=== PATIENT | male | born 1955 | race Caucasian/White ===

== ENCOUNTER 2020-02-18 07:32 | Outpatient (REF) | payer MEDICARE, MEDICAID, SELFPAY ==
[2020-02-18 10:47] LABS: Alanine Aminotransferase 64 U/L (0-40); Albumin Level 4.3 g/dL (3.5-5.0); Alkaline Phosphatase 70 U/L (39-117); Aspartate Amino Transferase 41 U/L (5-37); Bilirubin Direct 0.3 mg/dL (0.0-0.5); Bilirubin Total 0.6 mg/dL (0.0-1.0); Cholesterol 123 mg/dL; HDL Cholesterol 39 mg/dL; LDL Cholesterol Calculated 61 mg/dl; Total Protein 7.1 g/dL (6.5-8.0); Triglycerides 117 mg/dL
== END 2020-02-18 07:33 | disposition home or self-care (01) ==
LOC: HO.10HDL 07:32
DX: E78.5 Hyperlipidemia, unspecified (principal)
CPT/HCPCS: 80061; 80076

== ENCOUNTER 2020-03-22 11:04 | Emergency (ER) | payer MEDICARE, MEDICAID, SELFPAY ==
[2020-03-22 11:15] VITALS: BP 142/100; PULSE 118; RESP 18; TEMP 36.2; O2SAT 99; BMI 27.4
--- NOTE | 2020-03-22 11:56 | XR_ITS ---
EXAMINATION: XR LUMBOSACRAL SPINE CLINICAL INFORMATION: Low back pain COMPARISON: None TECHNIQUE: Three views of the lumbosacral spine. FINDINGS: There is mild 4 mm anterior subluxation of L5 with respect to S1. Bone alignment is otherwise normal. No fracture or dislocation is seen. Disc spaces are normal appearing. There is lower lumbar spine facet arthritis and probable L5 pars defect. There is evidence of atherosclerotic disease. XR/XR lumbar spine 2-3V IMPRESSION: Mild anterior subluxation of L5 with respect to S1, probable bilateral L5 pars defect, and lower lumbar spine facet arthritis.
--- NOTE | 2020-03-22 11:58 | ED.BACK ---
HPI - Back Pain/Injury General Chief Complaint: Back Pain/Injury Stated Complaint: back and left hip pain Time Seen by Provider: 03/22/20 13:32 Source: patient Mode of arrival: ambulatory Limitations: no limitations History of Present Illness HPI Narrative: Patient presents to the ED for lower back pain for 1 week. Patient states last week he got up from his bed and turned to towards his left fast and that caused his left lower back radiating down to the leg. Patient denies fall to ground or any blunt trauma to his back, abdomen, any other part of his body. Patient denies any urinary/bowel incontinence since incident occurred. Patient states no fever, chills, abdominal pain, dysuria, hematuria or flank pain. MD elicited complaint: back pain Related Data Previous Rx's Medication Instructions Recorded cyclobenzaprine 10 mg PO TID PRN #18 tab 03/22/20 Allergies Allergy/AdvReac Type Severity Reaction Status Date / Time No Known Allergies Allergy Verified 03/22/20 11:15 Review of Systems Review of Systems: Yes all other systems are reviewed and are negative Constitutional: Constitutional: Reports as per HPI and Reports no additional constitutional complaints Eyes: Eyes: Reports as per HPI and Reports no additional eye complaints ENT: Reports system reviewed and no additional complaints, except as documented and Reports as per HPI Cardiovascular: Cardiovascular: Reports as per HPI and Reports no additional cardiovascular complaints Respiratory: Respiratory: Reports as per HPI and Reports no additional respiratory complaints Gastrointestinal: Gastrointestinal: Reports as per HPI and Reports no additional gastrointestinal complaints Musculoskeletal: Musculoskeletal: Reports no additional musculoskeletal complaints, Reports as per HPI and Reports back pain Neurologic: Reports system reviewed and no additional complaints, except as documented and Reports as per HPI Psychiatric: Psychiatric: Reports no additional psychiatric complaints and Reports as per HPI [facility] Past Medical History Medical History High cholesterol Social History Social History Advance Directives: No Advance Directives Information Provided: Yes Physical Exam Vital Signs: Vital Signs: Last Vital Signs Temp 97.2 F 03/22/20 11:15 Pulse 100 03/22/20 13:48 Resp 18 03/22/20 13:48 BP 151/102 H 03/22/20 13:48 Pulse Ox 97 03/22/20 13:48 Body Mass Index 27.4 Const: General: cooperative, healthy appearing, comfortable, no acute distress, well developed, alert, awake and Physically active Orientation/consciousness: patient oriented x3 HENMT: Head: Yes normal to inspection and Yes No palpable skull fracture present Eyes: General: appearance normal, both eyes and all related structures Neck: Neck: Yes normal visual inspection, Yes full ROM, Yes no lymphadenopathy, Yes no meningeal signs, Yes trachea midline, Yes supple and No tender Chest: Chest palpation & inspection: normal inspection of the chest and normal palpation of entire chest wall Resp: Effort & Inspection: normal respiratory effort and able to speak in complete sentences Auscultation: clear to auscultation bilaterally Cardio: Jugular venous distension: no JVD Heart sounds: S1 normal heart sound present and S2 normal heart sound present : General: No CVA tenderness and Yes no CVA tenderness Back/Spine/Pelvis: Back: no CVA tenderness, No CVA tenderness and back tenderness (Lumbar spine) Skin: General skin exam: no rashes or lesions noted and elasticity normal Neuro: General: patient oriented x3, gait normal, no meningeal signs and CN's II-XI intact bilaterally Cranial nerves: Yes CN's II-XII intact bilaterally Extrem: General: Yes normal to inspection and Yes full ROM Psych: Appearance: grossly normal, well kempt and not disheveled Course Course Course Narrative: Patient will be given pain medication and have got x-ray done. Reevaluation(s) Reevaluation #1: X-ray negative for fracture. Shows arthritis and mild subluxation of lumbar spine. Patient walking around the ED. Negative for any neuro deficit. Dr. Pires reviewed xray results and states patient can be discharged with follow up Patient given copy of xray to follow up with his PCP. Patient already has tramadol prescription at home Time: 13:35 MDM - Back Pain/Injury MDM Narrative Medical decision making narrative: Lumbar spine arthritis Discharge Plan Discharge Clinical Impression: Lumbar radiculopathy Patient Disposition: Home, Self-Care Instructions: Lumbar Radiculopathy (ED) Additional Instructions: Return to the ED immediately for urinary/bowel incontinence, worsening pain, flank pain, fever, chills, bloody urine, pain on urination, abdominal pain, or any other concerning symptoms. Spine x-ray showed mild L5 anterior subluxation and arthritis. Prescriptions: New cyclobenzaprine 10 mg tablet 10 mg PO TID PRN (Reason: pain) Qty: 18 RF: 0 Interventions: ED Discharge Assessment Last Done: 03/22/20 13:59 Discharge Date/Time: 03/22/20 14:00 Print Language: Vietnamese
[2020-03-22] MEDS: Ketorolac Tromethamine 30 MG/ML VIAL IM (12:30)
[2020-03-22] MEDS: Cyclobenzaprine HCl 5 MG TABLET PO (12:30)
[2020-03-22 13:48] VITALS: BP 151/102; PULSE 100; RESP 18; O2SAT 97
== END 2020-03-22 14:00 | disposition home or self-care (01) ==
PROVIDERS: Emergency Provider Emergency Medicine
DX: M54.16 Radiculopathy, lumbar region (principal)
CPT/HCPCS: 72100; 96372; 99283; 99284; J1885

== ENCOUNTER 2020-07-07 08:01 | Outpatient (REF) | payer MEDICARE, MEDICAID, SELFPAY ==
[2020-07-07 09:31] LABS: Iron 40 mcg/dL (45-160); Percent Iron Saturation 12 % (15-50); Total Iron Binding Capacity 344 mcg/dL (228-428); Unsaturated Iron Binding 304 ug/dL
[2020-07-07 09:51] LABS: Basophils Percent Auto 0.3 % (0-2); Eosinophils Absolute Auto 0.4 X10*3/uL (0.0-0.4); Eosinophils Percent Auto 4.7 % (0-4); Hematocrit 39.7 % (42-52); Hemoglobin 12.8 g/dl (14.0-18.0); Imm Gran Abs Auto 0.04 X10*3/uL (0.00-0.03); Imm Gran Pct Auto 0.5 % (0.0-0.4); Immature Retic Fraction 9.2 % (2.3-13.4); Lymphocytes Absolute Auto 1.8 X10*3/uL (1.2-4.9); Lymphocytes Percent Auto 22.3 % (20-40); MANUAL DIFF FLAG SCAN; Mean Corpuscular HGB Conc 32.2 g/dl (31.0-36.0); Mean Corpuscular Hemoglobin 27.3 pg (27.0-33.0); Mean Corpuscular Volume 84.6 fL (80-98); Monocytes Absolute Auto 0.8 X10*3/uL (0.1-1.2); Monocytes Percent Auto 9.9 % (2-11); Neutrophils Percent Auto 62.3 % (45-73); PLT CLUMP 1; Red Blood Count 4.69 X10*6/uL (4.60-5.80); Red Cell Distribution Width 12.7 % (11.0-16.0); Retic HGB Equivalent 30.6 pg (30.0-35.0); Reticulocyte Percent 1.3 % (0.5-1.8); Reticulocytes Absolute 0.061 X10*6/uL (0.026-0.095); SCAN SMEAR FLAG 1
[2020-07-07 09:54] LABS: Ferritin 95 ng/mL (20-250); Prostate Specific Antigen Scr 0.27 ng/mL (<0.05-4.0)
[2020-07-07 10:04] LABS: Folate > 20.0 ng/mL (> or = 4.0); Vitamin B12 649 pg/mL (200-900)
[2020-07-07 10:06] LABS: White Blood Count 7.9 X10*3/uL (4.8-10.8)
[2020-07-07 10:07] LABS: SLIDE REVIEW VERIFIED
== END 2020-07-07 08:02 | disposition home or self-care (01) ==
LOC: HO.10HDL 08:01
PROVIDERS: PCP Internal Medicine; Visit Provider Internal Medicine
DX: D64.9 Anemia, unspecified (principal)
CPT/HCPCS: 36415; 82607; 82728; 82746; 83540; 84153; 85025; 85045

== ENCOUNTER 2020-11-15 07:42 | Outpatient (REF) | payer MEDICARE, MEDICAID, SELFPAY ==
[2020-11-15 10:25] LABS: Basophils Percent Auto 0.3 % (0-2); Eosinophils Absolute Auto 0.3 X10*3/uL (0.0-0.4); Hematocrit 42.7 % (42-52); Hemoglobin 14.4 g/dl (14.0-18.0); Imm Gran Abs Auto 0.02 X10*3/uL (0.00-0.03); Imm Gran Pct Auto 0.3 % (0.0-0.4); Immature Retic Fraction 9.2 % (2.3-13.4); Lymphocytes Absolute Auto 1.7 X10*3/uL (1.2-4.9); Lymphocytes Percent Auto 22.7 % (20-40); MANUAL DIFF FLAG SCAN; Mean Corpuscular HGB Conc 33.7 g/dl (31.0-36.0); Mean Corpuscular Hemoglobin 28.7 pg (27.0-33.0); Mean Corpuscular Volume 85.2 fL (80-98); Monocytes Absolute Auto 0.6 X10*3/uL (0.1-1.2); Monocytes Percent Auto 8.4 % (2-11); Neutrophils Absolute Auto 4.7 X10*3/uL (2.0-8.3); Neutrophils Percent Auto 64.3 % (45-73); PLT CLUMP 1; Red Blood Count 5.01 X10*6/uL (4.60-5.80); Red Cell Distribution Width 12.7 % (11.0-16.0); Reticulocyte Percent 1.7 % (0.5-1.8); Reticulocytes Absolute 0.087 X10*6/uL (0.026-0.095); SCAN SMEAR FLAG 1
[2020-11-15 10:29] LABS: Platelet Count (Citrate) 231 X10*3/uL (150-310)
[2020-11-15 10:42] LABS: Iron 128 mcg/dL (45-160); Percent Iron Saturation 46 % (15-50); Total Iron Binding Capacity 280 mcg/dL (228-428); Unsaturated Iron Binding 152 ug/dL
[2020-11-15 10:53] LABS: White Blood Count 7.3 X10*3/uL (4.8-10.8)
[2020-11-15 10:55] LABS: SLIDE REVIEW VERIFIED
[2020-11-15 11:44] LABS: Folate > 20.0 ng/mL (> or = 4.0); Vitamin B12 563 pg/mL (200-900)
[2020-11-15 12:47] LABS: Ferritin 57 ng/mL (20-250)
== END 2020-11-15 07:43 | disposition home or self-care (01) ==
LOC: HO.10HDL 07:42
PROVIDERS: Visit Provider Internal Medicine
DX: D64.9 Anemia, unspecified (principal)
CPT/HCPCS: 36415; 82607; 82728; 82746; 83540; 85025; 85045

== ENCOUNTER 2021-03-16 07:43 | Outpatient (REF) | payer MEDICARE, MEDICAID, SELFPAY ==
[2021-03-16 13:38] LABS: Basophils Percent Auto 0.3 % (0-2); Monocytes Percent Auto 9.7 % (2-11); PLT CLUMP 1; SCAN SMEAR FLAG 1
[2021-03-16 13:40] LABS: Eosinophils Absolute Auto 0.6 X10*3/uL (0.0-0.4); Eosinophils Percent Auto 6.5 % (0-4); Hematocrit 45.3 % (42.0-52.0); Imm Gran Abs Auto 0.03 X10*3/uL (0.00-0.03); Imm Gran Pct Auto 0.3 % (0.0-0.4); Lymphocytes Absolute Auto 2.4 X10*3/uL (1.2-4.9); Lymphocytes Percent Auto 25.8 % (20-40); MANUAL DIFF FLAG SCAN; Mean Corpuscular HGB Conc 33.1 g/dl (31.0-36.0); Mean Corpuscular Volume 87.6 fL (80.0-98.0); Monocytes Absolute Auto 0.9 X10*3/uL (0.1-1.2); Neutrophils Absolute Auto 5.2 x10*3/uL (2.0-8.3); Neutrophils Percent Auto 57.4 % (45-73); Red Blood Count 5.17 X10*6/uL (4.60-5.80)
[2021-03-16 13:43] LABS: PLT ABN DIST 1; White Blood Count 9.1 X10*3/uL (4.8-10.8)
[2021-03-16 13:45] LABS: Platelet Count (Citrate) 190 X10*3/uL (150-310)
[2021-03-16 13:46] LABS: SLIDE REVIEW VERIFIED
[2021-03-16 14:05] LABS: Alanine Aminotransferase 38 U/L (0-40); Albumin Level 4.2 g/dL (3.5-5.0); Alkaline Phosphatase 98 U/L (39-117); Anion Gap 11 (12-20); Aspartate Amino Transferase 29 U/L (5-37); Bilirubin Total 0.6 mg/dL (0.0-1.0); Blood Urea Nitrogen 11 mg/dL (9-16); Calcium 9.5 mg/dL (8.4-10.2); Carbon Dioxide 27 mmol/L (22-29); Chloride 106 mmol/L (96-108); Cholesterol 159 mg/dL; Estimated Glomerular Filt Rate > 60; Glucose Random 92 mg/dL (60-115); HDL Cholesterol 42 mg/dL; LDL Cholesterol Calculated 52 mg/dl; Potassium 4.3 mmol/L (3.3-5.1); Sodium 140 mmol/L (135-145); Total Protein 7.1 g/dL (6.5-8.0); Triglycerides 327 mg/dL
[2021-03-16 14:19] LABS: Free T4 (Free Thyroxine) 0.89 ng/dL (0.71-1.85); Thyroid Stimulating Hormone 0.01 uIU/mL (0.32-4.0)
[2021-03-16 14:25] LABS: Folate > 20.0 ng/mL (> or = 4.0); Vitamin B12 477 pg/mL (200-900)
== END 2021-03-16 07:44 | disposition home or self-care (01) ==
LOC: HO.10HDL 07:43
PROVIDERS: Visit Provider Internal Medicine
DX: Z12.5 Encounter for screening for malignant neoplasm of prostate (principal); E78.00 Pure hypercholesterolemia, unspecified
CPT/HCPCS: 36415; 80053; 80061; 82607; 82746; 84153; 84439; 84443; 85025

== ENCOUNTER 2021-04-18 07:29 | Outpatient (REF) | payer MEDICARE, MEDICAID, SELFPAY ==
[2021-04-18 11:17] LABS: Free T4 (Free Thyroxine) 0.83 ng/dL (0.71-1.85); Thyroid Stimulating Hormone 0.13 uIU/mL (0.32-4.0)
== END 2021-04-18 07:30 | disposition home or self-care (01) ==
LOC: HO.10HDL 07:29
PROVIDERS: Visit Provider Internal Medicine
DX: R94.6 Abnormal results of thyroid function studies (principal)
CPT/HCPCS: 36415; 84439; 84443

== ENCOUNTER 2021-06-22 07:12 | Outpatient (REF) | payer MEDICARE, MEDICAID, SELFPAY ==
[2021-06-22 08:39] LABS: Free T4 (Free Thyroxine) 0.89 ng/dL (0.71-1.85); Thyroid Stimulating Hormone 0.87 uIU/mL (0.32-4.0)
== END 2021-06-22 07:13 | disposition home or self-care (01) ==
LOC: HO.LAB 07:12
PROVIDERS: PCP Internal Medicine; Visit Provider Internal Medicine
DX: R94.6 Abnormal results of thyroid function studies (principal)
CPT/HCPCS: 36415; 84439; 84443

== ENCOUNTER 2022-05-01 07:28 | Outpatient (REF) | payer MEDICARE, MEDICAID, SELFPAY ==
[2022-05-01 11:02] LABS: Basophils Percent Auto 0.4 % (0-2); Eosinophils Absolute Auto 0.3 X10*3/uL (0.0-0.4); Hemoglobin 15.4 g/dl (14.0-18.0); Red Cell Distribution Width 12.7 % (11.0-16.0); SCAN SMEAR FLAG 1
[2022-05-01 11:04] LABS: Hematocrit 45.6 % (42.0-52.0); Imm Gran Abs Auto 0.02 X10*3/uL (0.00-0.03); Imm Gran Pct Auto 0.2 % (0.0-0.4); Lymphocytes Absolute Auto 2.1 X10*3/uL (1.2-4.9); Lymphocytes Percent Auto 24.8 % (20-40); MANUAL DIFF FLAG SCAN; Mean Corpuscular HGB Conc 33.8 g/dl (31.0-36.0); Mean Corpuscular Hemoglobin 29.3 pg (27.0-33.0); Mean Corpuscular Volume 86.9 fL (80.0-98.0); Monocytes Absolute Auto 0.9 X10*3/uL (0.1-1.2); Neutrophils Absolute Auto 5.1 x10*3/uL (2.0-8.3); Neutrophils Percent Auto 60.6 % (45-73); PLT CLUMP 1; Red Blood Count 5.25 X10*6/uL (4.60-5.80)
[2022-05-01 11:10] LABS: PLT ABN DIST 1
[2022-05-01 11:16] LABS: Alanine Aminotransferase 40 U/L (0-40); Albumin Level 4.3 g/dL (3.5-5.0); Alkaline Phosphatase 88 U/L (39-117); Anion Gap 14 (12-20); Aspartate Amino Transferase 34 U/L (5-37); Bilirubin Total 0.9 mg/dL (0.0-1.0); Blood Urea Nitrogen 12 mg/dL (9-16); Calcium 9.4 mg/dL (8.4-10.2); Carbon Dioxide 26 mmol/L (22-29); Chloride 105 mmol/L (96-108); Cholesterol 162 mg/dL; Estimated Glomerular Filt Rate > 60; Glucose Random 95 mg/dL (60-115); HDL Cholesterol 40 mg/dL; LDL Cholesterol Calculated 86 mg/dl; Potassium 4.8 mmol/L (3.3-5.1); Sodium 140 mmol/L (135-145); Total Protein 7.3 g/dL (6.5-8.0); Triglycerides 183 mg/dL
[2022-05-01 11:45] LABS: Folate 10.5 ng/mL (> or = 4.0); Free T4 (Free Thyroxine) 0.98 ng/dL (0.71-1.85); Prostate Specific Antigen Scr 0.34 ng/mL (<0.05-4.0); Thyroid Stimulating Hormone 1.99 uIU/mL (0.32-4.0); Vitamin B12 390 pg/mL (200-900)
[2022-05-01 11:48] LABS: White Blood Count 8.4 X10*3/uL (4.8-10.8)
[2022-05-01 11:51] LABS: SLIDE REVIEW VERIFIED
== END 2022-05-01 07:29 | disposition home or self-care (01) ==
LOC: HO.10HDL 07:28
PROVIDERS: Visit Provider Internal Medicine
DX: Z12.5 Encounter for screening for malignant neoplasm of prostate (principal); E78.00 Pure hypercholesterolemia, unspecified
CPT/HCPCS: 36415; 80053; 80061; 82607; 82746; 84153; 84439; 84443; 85025

== ENCOUNTER 2022-08-02 07:31 | Outpatient (REF) | payer MEDICARE, MEDICAID, SELFPAY ==
[2022-08-02 10:50] LABS: Basophils Percent Auto 0.2 % (0-2); Eosinophils Absolute Auto 0.3 X10*3/uL (0.0-0.4); Hematocrit 44.1 % (42.0-52.0); Hemoglobin 14.9 g/dl (14.0-18.0); Imm Gran Abs Auto 0.03 X10*3/uL (0.00-0.03); Imm Gran Pct Auto 0.3 % (0.0-0.4); Lymphocytes Absolute Auto 1.9 X10*3/uL (1.2-4.9); Lymphocytes Percent Auto 19.3 % (20-40); Mean Corpuscular HGB Conc 33.8 g/dl (31.0-36.0); Mean Corpuscular Hemoglobin 29.4 pg (27.0-33.0); Monocytes Absolute Auto 0.9 X10*3/uL (0.1-1.2); Monocytes Percent Auto 9.1 % (2-11); Neutrophils Absolute Auto 6.6 x10*3/uL (2.0-8.3); Neutrophils Percent Auto 68.1 % (45-73); Red Blood Count 5.07 X10*6/uL (4.60-5.80); Red Cell Distribution Width 12.5 % (11.0-16.0)
[2022-08-02 10:56] LABS: Platelet Count (Citrate) 165 X10*3/uL (150-310); White Blood Count 9.7 X10*3/uL (4.8-10.8)
== END 2022-08-02 07:32 | disposition home or self-care (01) ==
LOC: HO.10HDL 07:31
PROVIDERS: Visit Provider Internal Medicine
DX: D64.9 Anemia, unspecified (principal)
CPT/HCPCS: 36415; 85025

== ENCOUNTER 2022-11-13 08:14 | Outpatient (AMB) | payer MEDICARE, SELFPAY ==
[2022-11-13 08:36] VITALS: BP 140/80; PULSE 69; O2SAT 99; BMI 26.7
--- NOTE | 2022-11-13 08:36 | A.OFFPC_ITS ---
Vital Signs 11/13/22 08:36 Height 5 ft 6 in Weight 165 lb 8 oz BMI 26.7 BP 140/80 H Blood Pressure Location Lt brachial Position Sitting Pulse 69 Pulse Source Pulse Oximeter Pulse Oximetry (%) 99 Oxygen Delivery Method Room Air Intake Visit Reasons: Annual Exam Formula Weigher Required: No Optical Laboratory Technician: Present Accompanied by: Spouse Allergies No Known Allergies Allergy (Verified 11/13/22 08:44) Medication List - Last Reconciled 11/13/22 by Danielle Bunn MD carbamide peroxide 6.5% (Debrox) 5 drps otic (ears) DAILY 4 days loratadine 10 mg PO DAILY omeprazole 20 mg PO DAILY simvastatin 40 mg PO QPM 90 days tramadol 50 mg PO TID PRN Tobacco use date assessed: 11/13/22 Fall risk assessment: No Falls in past year Last assessed Fall Risk: 11/13/22 Dental Screening Dental Screen Date: 11/13/22 Did you have a dental visit in the last 12 months?: No Did you have a dental problem in the last 6 months where you did not have access to dental care?: No Was dental information given to patient?: No HPI Annual Exam HPI Details 67-year-old overweight male with GERD hypercholesterolemia lumbar degenerative disc disease coming in for physical exam. Last seen in July 2022. Cologuard negative October 2020. BP high here only. good at hoem and checks [facility] Medical History (Updated 11/13/22 @ 09:11 by Danielle Bunn MD) Anemia Colon cancer screening Degenerative disc disease Fatty liver Hypercholesterolemia Osteoarthritis Surgical History No pertinent past surgical history Family History (Updated 11/13/22 @ 08:39 by Koko Hardin MA) Brother Alcohol abuse Sister FHx: ovarian cancer Social History Housing: Apartment Alcohol intake: never Patient Tobacco Use Status: Former Tobacco user Tobacco use type: Cigarette Years Smoked: quit 1999 e-Cigarette/Vaping Use: Never Used Second Hand Smoke Exposure: No service: No Current occupational status: unemployed Cognitive needs: No Hearing needs: No Vision needs: Yes (reading glasses) Questionnaire PHQ-9 Over the last 2 weeks, how often have you been bothered by any of the following problems? 1. Little interest or pleasure in doing things: not at all 2. Feeling down, depressed, or hopeless: not at all 3. Trouble falling or staying asleep, or sleeping too much: not at all 4. Feeling tired or having little energy: not at all 5. Poor appetite or overeating: not at all 6. Feeling bad about yourself - or that you are a failure or have let yourself or your family down: not at all 7. Trouble concentrating on things, such as reading the newspaper or watching television: not at all 8. Moving or speaking so slowly that other people could have noticed. Or the opposite - being so fidgety or restless that you have been moving around a lot more than usual: not at all 9. Thoughts that you would be better off or of hurting yourself in some way: not at all Total score: 0 Depression Screening Interpretation: Negative Source: Developed by Drs. Nikos Pretty, Yanely Clayton, Silvio Armando and colleagues, with an educational ariadne from [employer]. Thrive Questionnaire Date Thrive assessed: 11/13/22 I am a: Patient What is your living situation today?: I have a steady place to live Within the past 12 months, did the food you bought not last and you didn't have the money to get more?: Never true Within the past 12 months, did you worry whether your food would run out before you got money to buy more?: Never true Do you have trouble paying for medicines?: No Do you have trouble getting transportation to medical appointments?: No Do you have trouble paying your heating and electricity bill?: No Do you have trouble taking care of your child, family member or friend?: No Do you have trouble with day-to-day activities such as bathing, preparing meals, shopping, managing finances, etc.?: No Are you currently unemployed and looking for a job?: No Are you interested in more education?: No Please select the resources that you would like help with: None Currently or been in a relationship where the following occur: no concerns reported AUDIT C Alcohol Use Questionnaire (AUDIT-C) 1. How often do you have a drink containing alcohol?: Never 3. How often do you have six or more drinks on one occasion?: Never Total Score: 0 Score Reviewed/Action Taken: Yes RITU-7 AMB Questionnaire RITU-7 Date RITU - 7 assessed: 11/13/22 Feeling nervous, anxious, or on edge: 0 = Not at all Not being able to stop or control worryin = Not at all Worrying too much about different things: 0 = Not at all Trouble relaxin = Not at all Being so restless that it is hard to sit still: 0 = Not at all Becoming easily annoyed or irritable: 0 = Not at all Feeling afraid as if something awful might happen: 0 = Not at all Total RITU-7 score (0-4 normal; 5-9 mild; 10-14 moderate; 15-21 severe): 0 Source: Developed by Drs. Nikos Pretty, Yanely Clayton, Silvio Armando and colleagues, with an educational ariadne from [employer]. Review of Systems Const Denies poor appetite and Denies weakness Eyes Denies no additional complaints ENT Reports Normal hearing present Card Denies chest pain, Denies syncope, Denies rapid heart rate and Denies dyspnea Resp Denies cough and Denies dyspnea GI Denies change in stool character, Reports constipation, Denies diarrhea, Denies nausea and Denies vomiting Denies dysuria and Denies urinary frequency Neuro Reports Normal hearing present, Denies confusion, Denies syncope and Denies weakness Psych Denies confusion Physical exam (Primary Care) Vital Signs: Last Vital Signs Pulse 69 11/13/22 08:36 BP 140/80 H 11/13/22 08:36 Pulse Ox 99 11/13/22 08:36 Oxygen Delivery Method Room Air 11/13/22 08:36 BMI result Body Mass Index 26.7 Tobacco/Smoking Status: Tobacco use Status Tobacco use date assessed 11/13/22 11/13/22 08:46 Patient Tobacco Use Status Former Tobacco user 11/13/22 08:46 Tobacco use type Cigarette 11/13/22 08:46 e-Cigarette/Vaping Use Never Used 11/13/22 08:46 PHQ-9: PHQ-9 Score PHQ-9: Total score 0 11/13/22 08:46 Depression Screening Interpretation: Negative Thrive Assessment: Date of Thrive Assessment Date Thrive assessed 11/13/22 11/13/22 08:50 Currently or been in a relationship where the following occur: no concerns r eported Const General: alert and awake; No confusion Orientation/consciousness: No confusion HENMT Other: impacted cerumen bilateral Head: Yes normocephalic Ears: external ears normal Face and sinus: Yes normal facial exam Mouth: moist mucous membranes Throat: Yes tonsils normal Eyes Conjunctivae: conjunctivae normal Pupils: Equal, round and reactive pupils present and Pupil accommodation reflex normal Direct Ophthalmoscopy: normal light reflex Neck Neck: No lymphadenopathy Thyroid: Thyroid normal Chest Chest palpation & inspection: normal inspection of the chest Resp Effort & Inspection: normal respiratory effort and no audible wheezes Auscultation: clear to auscultation bilaterally, no crackles, no wheezes and lung sounds not diminished Cardio Rate: regular rate Rhythm: regular rhythm Peripheral pulses: radial pulses present and dorsalis pedis present GI Other: guaiac negative prostate N Palpation (GI): no masses Auscultation: normal bowel sounds and normoactive bowel sounds Male General Exam: Yes normal external exam Skin General skin exam: no rashes or lesions noted Rashes: no rashes Neuro General: deep tendon reflexes 2+ bilaterally and No confusion Cranial nerves: Yes Equal, round and reactive pupils present, Yes Midline tongue present, Yes Normal hearing present and Yes Ability to bilaterally elevate shoulders present Cognition (Neuro): normal cognition Gait exam (Neuro): Normal gait present Motor exam (neuro): 5/5 motor strength present throughout Deep tendon reflexes (DTR's): Right brachioradialis reflex intensity grade: 2+, Left brachioradialis reflex intensity grade: 2+, Right patellar reflex intensity grade: 2+ and Left patellar reflex intensity grade: 2+ Extrem General: No edema Assessment and Plan Assessment & Plan (1) Annual physical exam: Code(s): Z00.00 - Encounter for general adult medical examination without abnormal findings (2) Hypercholesterolemia: Code(s): E78.00 - Pure hypercholesterolemia, unspecified Plan: Avoid fried foods, chicken skin, eggs, butter margarine, pastries and meat. Be it pork or beef they have a lot of cholesterol LDL goal of less than 130 and triglyceride of less than 150 patient takes simvastatin 40 mg once a day July 2022 last blood work (3) Degenerative disc disease: Comment: Cervical and lumbar PSS Plan: On tramadol, keep active and keep well hydrated (4) GERD (gastroesophageal reflux disease): Code(s): K21.9 - Gastro-esophageal reflux disease without esophagitis Plan: Avoid the foods that causes that usually spicy foods, tomato products, juices, coffee, soda and foods that your sensitive to. After eating do not lie down, allow 3-4 hours before in lie down. And keep the head of bed above 30 degrees to avoid the acid from going up. On omeprazole (5) Overweight (BMI 25.0-29.9): Code(s): E66.3 - Overweight Plan: Diet and exercise (6) Impacted cerumen of both ears: Code(s): H61.23 - Impacted cerumen, bilateral Plan: Try to irrigate himself Medications: Refilled tramadol 50 mg PO TID PRN 90 tabs 1RF pain D64.9 - Anemia, unspecified Coding Level of Care Code Est Pt Prev Care >65y(75724) Diagnoses Annual physical exam Z00.00 Hypercholesterolemia E78.00 Degenerative disc disease GERD (gastroesophageal reflux disease) K21.9 Overweight (BMI 25.0-29.9) E66.3 Impacted cerumen of both ears H61.23 Additional Codes PHQ-9 - 23696 - PHQ-9 Billing: Y ([id number])
== END 2022-11-13 09:23 | disposition home or self-care (01) ==
PROVIDERS: PCP Internal Medicine; Visit Provider Internal Medicine
DX: Z00.00 Encounter for general adult medical examination without abnormal findings (principal); E78.00 Pure hypercholesterolemia, unspecified; K21.9 Gastro-esophageal reflux disease without esophagitis; Z23 Encounter for immunization; E66.3 Overweight; H61.23 Impacted cerumen, bilateral
CPT/HCPCS: 90471; 90677; 99397

== ENCOUNTER 2023-02-13 08:19 | Outpatient (AMB) | payer MEDICARE, SELFPAY ==
[2023-02-13 08:43] VITALS: BP 168/82; PULSE 102; O2SAT 98; BMI 26.1
--- NOTE | 2023-02-13 08:43 | A.OFFPC_ITS ---
Vital Signs 02/13/23 08:43 02/13/23 09:20 Height 5 ft 6 in Weight 162 lb BMI 26.1 BP 168/82 H 140/90 H Blood Pressure Location Lt brachial Lt brachial Position Sitting Sitting Pulse 102 H Pulse Source Pulse Oximeter Pulse Oximetry (%) 98 Oxygen Delivery Method Room Air Intake Visit Reasons: 3 month f/u Coconut Jelly Roller Required: No Accompanied by: Self / Same As Patient Allergies No Known Allergies Allergy (Verified 02/13/23 08:43) Tobacco use date assessed: 11/13/22 Fall risk assessment: No Falls in past year Last assessed Fall Risk: 02/13/23 Dental Screening Dental Screen Date: 02/13/23 Did you have a dental visit in the last 12 months?: No Did you have a dental problem in the last 6 months where you did not have access to dental care?: No Was dental information given to patient?: No HPI 3 month f/u HPI Details 67-year-old overweight male with hyperch olesterolemia degenerative disc disease GERD coming in for follow-up last seen in October 2022 for physical exam. Cologuard negative October 2020. Flu in COVID shot done [facility] Medical History (Updated 02/13/23 @ 09:17 by Danielle Bunn MD) Colon cancer screening Fatty liver Degenerative disc disease Anemia Osteoarthritis Hypercholesterolemia Surgical History No pertinent past surgical history Family History Brother Alcohol abuse Sister FHx: ovarian cancer Social History Housing: Apartment Alcohol intake: never Patient Tobacco Use Status: Former Tobacco user Tobacco use type: Cigarette Years Smoked: quit 1999 e-Cigarette/Vaping Use: Never Used Second Hand Smoke Exposure: No service: No Current occupational status: unemployed Cognitive needs: No Hearing needs: No Vision needs: Yes (reading glasses) Questionnaire PHQ-9 Over the last 2 weeks, how often have you been bothered by any of the following problems? 1. Little interest or pleasure in doing things: not at all 2. Feeling down, depressed, or hopeless: not at all 3. Trouble falling or staying asleep, or sleeping too much: not at all 4. Feeling tired or having little energy: not at all 5. Poor appetite or overeating: not at all 6. Feeling bad about yourself - or that you are a failure or have let yourself or your family down: not at all 7. Trouble concentrating on things, such as reading the newspaper or watching television: not at all 8. Moving or speaking so slowly that other people could have noticed. Or the opposite - being so fidgety or restless that you have been moving around a lot more than usual: not at all 9. Thoughts that you would be better off or of hurting yourself in some way: not at all Total score: 0 Depression Screening Interpretation: Negative Depression Screening Done: Yes Source: Developed by Drs. Nikos Pretty, Yanely Clayton, Silvio Armando and colleagues, with an educational ariadne from [email or web address]. Thrive Questionnaire Date Thrive assessed: 11/13/22 AUDIT C Alcohol Use Questionnaire (AUDIT-C) 1. How often do you have a drink containing alcohol?: Never 3. How often do you have six or more drinks on one occasion?: Never Total Score: 0 Score Reviewed/Action Taken: Yes RITU-7 AMB Questionnaire RITU-7 Date RITU - 7 assessed: 11/13/22 Source: Developed by Drs. Nikos Pretty, Yanely Clayton, Silvio Armando and colleagues, with an educational ariadne from [email or web address]. Physical exam (Primary Care) Vital Signs: Last Vital Signs Pulse 102 H 02/13/23 08:43 BP 168/82 H 02/13/23 08:43 Pulse Ox 98 02/13/23 08:43 Oxygen Delivery Method Room Air 02/13/23 08:43 BMI result Body Mass Index 26.1 Tobacco/Smoking Status: Tobacco use Status Tobacco use date assessed 11/13/22 02/13/23 08:44 Patient Tobacco Use Status Former Tobacco user 02/13/23 08:44 Tobacco use type Cigarette 02/13/23 08:44 e-Cigarette/Vaping Use Never Used 02/13/23 08:44 PHQ-9: PHQ-9 Score PHQ-9: Total score 0 02/13/23 08:59 Depression Screening Interpretation: Negative Thrive Assessment: Date of Thrive Assessment Date Thrive assessed 08/29/23 11/29/23 08:44 Const Other: impacted cerumen bilateral General: alert; No acute distress Eyes Conjunctivae: conjunctivae normal Resp Auscultation: clear to auscultation bilaterally Cardio Rate: regular rate Rhythm: regular rhythm GI Inspection: Yes normal to inspection Extrem General: Yes normal to inspection and No edema Office Procedures Cerumen Removal From which ear canal was the cerumen removed: bilateral Removal: irrigation, otoscope w/curette, cerumen loop/spoon and other Notes: patient tolerated procedure well, no complications and ear canal clear [id number] Irrigation/Lavage Assessment and Plan Assessment & Plan (1) Overweight (BMI 25.0-29.9): Code(s): E66.3 - Overweight Plan: Diet and exercise (2) GERD (gastroesophageal reflux disease): Code(s): K21.9 - Gastro-esophageal reflux disease without esophagitis Plan: Avoid the foods that causes that usually spicy foods, tomato products, juices, coffee, soda and foods that your sensitive to. After eating do not lie down, allow 3-4 hours before in lie down. And keep the head of bed above 30 degrees to avoid the acid from going up. (3) Hypercholesterolemia: Code(s): E78.00 - Pure hypercholesterolemia, unspecified Plan: Avoid fried foods, chicken skin, eggs, butter margarine, pastries and meat. Be it pork or beef they have a lot of cholesterol LDL goal of less than 130 and triglyceride of less than 150 (4) Blood pressure elevated without history of HTN: Code(s): R03.0 - Elevated blood-pressure reading, without diagnosis of hypertension Plan: bLOOD PRESSURE at home is good and patient monitor (5) Degenerative disc disease: Comment: Cervical and lumbar PSS (6) Impacted cerumen of both ears: Code(s): H61.23 - Impacted cerumen, bilateral Plan: scoop and irrigation done TM intact Orders: Orders Complete Blood Count Auto Diff Today E78.00 - Pure hypercholesterolemia, unspecified Prostate Specific Antigen Scr Today E78.00 - Pure hypercholesterolemia, unspecified Comprehensive Met. Panel Today E78.00 - Pure hypercholesterolemia, unspecified Thyroid Stimulating Hormone Today E78.00 - Pure hypercholesterolemia, unspecified Vitamin B12 and Folate Today E78.00 - Pure hypercholesterolemia, unspecified Free T4 (Free Thyroxine) Today E78.00 - Pure hypercholesterolemia, unspecified Lipid Panel Today E78.00 - Pure hypercholesterolemia, unspecified Coding Level of Care Code Est Pt Level 4 (99052) Diagnoses Overweight (BMI 25.0-29.9) E66.3 GERD (gastroesophageal reflux disease) K21.9 Hypercholesterolemia E78.00 Blood pressure elevated without history of HTN R03.0 Degenerative disc disease Impacted cerumen of both ears H61.23 CPT Codes Office Procedure - CPT: 29942-Qjp Irrigation/Lavage ([id number]) Additional Codes PHQ-9 - 67092 - PHQ-9 Billing: ([id number])
[2023-02-13 09:20] VITALS: BP 140/90
== END 2023-02-13 09:37 | disposition home or self-care (01) ==
PROVIDERS: PCP Internal Medicine; Visit Provider Internal Medicine
DX: H61.23 Impacted cerumen, bilateral (principal)
CPT/HCPCS: 69209; 99214

== ENCOUNTER 2023-04-29 11:43 | Emergency (ER) | payer MEDICARE, SELFPAY ==
--- NOTE | ~2023-04-29 | CT_ITS ---
EXAMINATION: CT HEAD WITHOUT CONTRAST CLINICAL INFORMATION: Headache. Hypertension. COMPARISON: None available. TECHNIQUE: Contiguous axial imaging was performed from the skull base to vertex without intravenous administration of contrast. This CT examination was performed using dose optimization techniques as appropriate, variously including the following: *Automated exposure control. *Adjustment of mA and/or kV according to patient size (this includes techniques or standardized protocols for targeted exams where dose is matched to indication/reason for exam; i.e. extremities or head). *Use of iterative reconstruction technique. DLP: 636 mGy-cm FINDINGS: There is no evidence of acute intracranial hemorrhage or edematous territorial infarction. Basal ganglia mineralization. Howell-white matter differentiation is preserved. A few foci of hypoattenuation in the periventricular and deep white matter are consistent with mild microangiopathy. The ventricles are normal in morphology and size. No evidence for obstructive hydrocephalus. The suprasellar cistern remains widely patent. The cerebellar tonsils are normally positioned. No abnormal mass effect or midline shift. No extra-axial fluid collections. No acute soft tissue or osseous abnormalities. Mild mucosal thickening of the paranasal sinuses. The mastoid air cells and middle ear cavities are clear. CT/CT head/brain wo IV con IMPRESSION: 1. No evidence of acute intracranial hemorrhage or edematous territorial infarction. 2. Mild underlying microangiopathy.
--- NOTE | ~2023-04-29 | XR_ITS ---
EXAMINATION: XR CHEST CLINICAL INFORMATION: Hypertension, headache and dizziness. COMPARISON: None available. TECHNIQUE: 2 views of the chest were obtained. FINDINGS: Lungs are well-inflated and clear. Trachea is midline in position. No interstitial disease, consolidation or mass. No pleural effusion or pneumothorax. Cardiac silhouette and pulmonary vessels are normal in size. The mediastinum and torres have normal contour. The visualized bones are unremarkable. A 1 cm round opacity of the upper anterior abdominal wall might be artifactual from an overlying structure on the skin surface. XR/XR chest 2V IMPRESSION: Lungs have a normal appearance. No acute cardiopulmonary abnormality.
[2023-04-29 11:56] VITALS: BP 186/114; PULSE 109; RESP 18; TEMP 36.1; O2SAT 98; BMI 26.2
--- NOTE | 2023-04-29 11:56 | ED_ITS ---
HPI - General Adult General Chief complaint: General Medical Stated complaint: HPB sent by Time Seen by Provider: 04/29/23 13:25 Source: patient Mode of arrival: ambulatory Limitations: no limitations History of Present Illness HPI narrative: 67 yo male with PMH of GERD, fatty liver, anemia, arthritis, HLD notes he has a BP cuff at home and it is usually 140 systolic. He used to take HCTZ and lisinopril no issues with them years ago but taken off as BP improved as he is an avid walker. This weekend felt a little dizzy mild headache BP was up to 170s and 180s. He denies OTC supplements, trauma, numbness, weakness. He has no CP or angina symptoms. His PCP sent him for evaluation. MD complaint: HTN Onset (ago): day(s) (couple) Severity: moderate Relieving factors: none Exacerbating factors: none Associated symptoms: other (felt a little dizzy) Treatments prior to arrival: none Related Data Home Medications Medication Instructions Recorded Confirmed loratadine 10 mg tablet 10 mg PO DAILY 11/13/22 11/13/22 Previous Rx's Medication Instructions Recorded omeprazole 20 mg capsule,delayed 20 mg PO DAILY #30 caps 11/02/21 release carbamide peroxide 6.5 % ear drops 5 drp otic (ears) DAILY 4 days #15 12/25/21 (Debrox) mL simvastatin 40 mg tablet 40 mg PO QPM 90 days #90 tabs 06/15/22 tramadol 50 mg tablet 50 mg PO TID PRN pain #90 tabs 04/26/23 lisinopril 5 mg tablet 5 mg PO DAILY #30 tabs 04/29/23 Allergies Allergy/AdvReac Type Severity Reaction Status Date / Time No Known Allergies Allergy Verified 04/29/23 11:59 Review of Systems 2 Review of Systems: Constitutional : No Fever, No Chills, No Fatigue ENT/Mouth : No sore throat, No Rhinorrhea Eyes: No Eye Pain, No Swelling, No Redness Cardiovascular : No Chest Pain, No SOB, No Dyspnea on Exertion Respiratory : No Cough, No Sputum Gastrointestinal : No Nausea, No Vomiting, No Diarrhea, No abdominal Pain Genitourinary : No Dysuria, No Urinary Frequency, No Hematuria, Musculoskeletal : No joint pain, No Myalgias, No Joint Swelling Skin : No Skin Lesions, No rash Neuro : No Weakness, No Numbness, No Dizziness, no Headache Psych : No Anxiety/Panic, No Depression Heme/Lymph: No Bruising, No Bleeding,No Lymphadenopathy Endocrine : No Polyuria, No Polydipsia All other systems reviewed and are negative [facility] Past Medical History Attestation statement: The following information was validated with the patient. Source: old records reviewed Medical History Colon cancer screening Fatty liver Degenerative disc disease Anemia Osteoarthritis Hypercholesterolemia Surgical History No pertinent past surgical history Family History Family History Brother Alcohol abuse Sister FHx: ovarian cancer Social History Social History Housing: Apartment Alcohol intake: never Patient Tobacco Use Status: Former Tobacco user Tobacco use type: Cigarette Years Smoked: quit 1999 e-Cigarette/Vaping Use: Never Used Second Hand Smoke Exposure: No Advance Directives: Yes Advance Directives Information Provided: No Advance Directives on File: No service: No Current occupational status: unemployed Cognitive needs: No Hearing needs: No Vision needs: Yes (reading glasses) Physical Exam ED Vital Signs: Vital Signs - 24 hr 04/29/23 11:56 Temperature 96.9 F Pulse Rate 109 H Respiratory Rate 18 Blood Pressure 186/114 H Pulse Oximetry 98 Oxygen Delivery Method Room Air BMI result Body Mass Index 26.2 Appearance: Alert. Oriented X3. No acute distress. BP 148/100 asymptomatic Eyes: Pupils equal, round and reactive to light. ENT: Pharynx normal. Neck: Normal inspection. Neck supple. CVS: Normal heart rate and rhythm. Pulses normal. Respiratory: No respiratory distress. Breath sounds normal. Abdomen: Soft and nontender. Skin: Skin warm and dry. Normal skin color. Normal skin turgor. Extremities: No lower extremity edema. No calf ttp Neuro: Oriented X 3. No motor deficit. No sensory deficit. steady gait Course Course Course Narrative: RME performed by Lis Jimenez PA-C. Patient is a 67 year old assigned male at presenting to the emergency department with high blood pressure. Detailed physical exam and review of systems are deferred to the rvda master certified rv technician. Labs, imaging, swabs ordered. Patient placed back in the waiting room pending room availability and results. Medical Decision Making Medical Decision Making [facility] Narrative: 67 yo male with PMH of GERD, fatty liver, anemia, arthritis, HLD, presents with a few day of elevated HTN used to have HTN off of medications due to exercise and BP dropping other than mild headache and dizziness without neuro findings he has no signs of end organ dysfunction. He has labs, EKG, CT head done from triage all reassuring. He is asymptomatic at this time. Has good PCP follow up will start on low dose lisinopril and DC home to PCP follow up Differential Diagnosis Differential Diagnoses: The differential diagnosis associated with the presentation includes chronic HTN Admission/Observation Consideration of admission/observation: Escalation of care including admission/observation considered no signs of end organ damage can be DC home Lab Data [facility] Lab Attestation statement: I reviewed the patient's lab results. 04/29/23 12:43 04/29/23 12:43 Labs: Lab Results 04/29/23 Range/Units 12:43 WBC 10.8 (4.8-10.8) X10*3/uL RBC 5.24 (4.60-5.80) X10*6/uL Hgb 15.3 (14.0-18.0) g/dl Hct 44.2 (42.0-52.0) % MCV 84.4 (80.0-98.0) fL MCH 29.2 (27.0-33.0) pg MCHC 34.6 (31.0-36.0) g/dl RDW 12.3 (11.0-16.0) % Plt Count TNP MPV 12.0 (9.4-12.4) fL Immature Gran % (Auto) 0.3 (0.0-0.4) % Neut % (Auto) 77.1 H (45-73) % Lymph % (Auto) 14.9 L (20-40) % [place] % (Auto) 7.1 (2-11) % Eos % (Auto) 0.3 (0-4) % Baso % (Auto) 0.3 (0-2) % Lymph # (Auto) 1.6 (1.2-4.9) X10*3/uL [place] # (Auto) 0.8 (0.1-1.2) X10*3/uL Eos # (Auto) 0.0 (0.0-0.4) X10*3/uL Baso # (Auto) 0.0 (0.0-0.2) X10*3/uL Abs Immat Gran (auto) 0.03 (0.00-0.03) X10*3/uL Absolute Neuts (auto) 8.4 H (2.0-8.3) x10*3/uL Absolute Nucleated RBC 0.000 (0.0-0.012) X10*3/uL Nucleated RBC % (auto) 0.0 (0.0-0.2) /100WBC Sodium 138 (135-145) mmol/L Potassium 3.8 (3.3-5.1) mmol/L Chloride 105 (96-108) mmol/L Carbon Dioxide 22 (22-29) mmol/L Anion Gap 15 (12-20) BUN 14 (9-16) mg/dL Creatinine 0.79 (0.5-1.4) mg/dL Estim Creat Clear Calc 84.1 Estimated GFR > 60 Random Glucose 110 (60-115) mg/dL Calcium 9.4 (8.4-10.2) mg/dL Magnesium 1.8 (1.6-2.6) mg/dL Total Bilirubin 0.5 (0.0-1.0) mg/dL AST 27 (5-37) U/L ALT 30 (0-40) U/L Alkaline Phosphatase 87 (39-117) U/L Troponin I High Sens < 2.7 (<3.5-35.0) ng/L Total Protein 7.8 (6.5-8.0) g/dL Albumin 4.4 (3.5-5.0) g/dL COVID-19 (JOSÉ MIGUEL) Negative (Negative) COVID-19 Clin Com See Note Influenza Type A (ROSARIO) Negative (Negative) Influenza Type B (ROSARIO) Negative (Negative) Influenza A & B Note See Note Independent Interpretation I performed an independent interpretation of an: EKG, Plain X-Ray (normal ) and CT Scan (normal ) Interpretation: Rate: 97 Rhythm: NSR with PVCs [place]: normal Normal P waves. Normal DUSTY. Normal QRS complex. ST T wave : no SIMEON, old q wave III qTC: normal prior studies: no acute ischemia The study has been interpreted contemporaneously by me. . External Record Review External record reviewed: Inpatient record Prescription Management I considered prescription management with: Other Discharge Plan Discharge Clinical Impression: HTN (hypertension) Qualifiers: Hypertension type: unspecified Qualified Code(s): I10 - Essential (primary) hypertension Patient Disposition: Home, Self-Care Instructions: Hypertension (ED) Additional Instructions: return for chest pain, swollen tongue/lips/facial swelling, numbness, weakness or any other concerns. BP when you left ED was 140/100 will start on lisinopril your doctor can titrate it up please follow up with them - labs, EKG and CT head were normal Prescriptions: New lisinopril 5 mg tablet 5 mg PO DAILY Qty: 30 0RF No Action simvastatin 40 mg tablet 40 mg PO QPM 90 Days Qty: 90 2RF tramadol 50 mg tablet 50 mg PO TID PRN (Reason: pain) Qty: 90 0RF omeprazole 20 mg capsule,delayed release(DR/EC) 20 mg PO DAILY Qty: 30 0RF loratadine 10 mg tablet 10 mg PO DAILY Debrox 6.5 % drops 5 drp otic (ears) DAILY 4 Days Qty: 15 0RF Stand Alone Forms: Work/School Release
--- NOTE | 2023-04-29 11:57 | ECG_ITS ---
Test Reason : HTN Blood Pressure : / mmHG Vent. Rate : 097 BPM Atrial Rate : 097 BPM P-R Int : 138 ms QRS Dur : 108 ms QT Int : 344 ms P-R-T Axes : 072 007 027 degrees QTc Int : 436 ms Sinus rhythm with occasional Premature ventricular complexes Inferior infarct (cited on or before 29-APR-2023) Abnormal ECG When compared with ECG of 02-JAN-2014 10:50, Premature ventricular complexes are now Present Referred By: Lis Jimenez Electronically Signed By:Cholo Rios
[2023-04-29 12:50] LABS: MANUAL DIFF FLAG NO
[2023-04-29 12:54] LABS: Basophils Percent Auto 0.3 % (0-2); Eosinophils Percent Auto 0.3 % (0-4); Hematocrit 44.2 % (42.0-52.0); Hemoglobin 15.3 g/dl (14.0-18.0); Imm Gran Abs Auto 0.03 X10*3/uL (0.00-0.03); Imm Gran Pct Auto 0.3 % (0.0-0.4); Lymphocytes Absolute Auto 1.6 X10*3/uL (1.2-4.9); Lymphocytes Percent Auto 14.9 % (20-40); Mean Corpuscular HGB Conc 34.6 g/dl (31.0-36.0); Mean Corpuscular Hemoglobin 29.2 pg (27.0-33.0); Mean Corpuscular Volume 84.4 fL (80.0-98.0); Monocytes Absolute Auto 0.8 X10*3/uL (0.1-1.2); Monocytes Percent Auto 7.1 % (2-11); Neutrophils Absolute Auto 8.4 x10*3/uL (2.0-8.3); Neutrophils Percent Auto 77.1 % (45-73); Red Blood Count 5.24 X10*6/uL (4.60-5.80); Red Cell Distribution Width 12.3 % (11.0-16.0); White Blood Count 10.8 X10*3/uL (4.8-10.8)
[2023-04-29 13:09] LABS: Alanine Aminotransferase 30 U/L (0-40); Albumin Level 4.4 g/dL (3.5-5.0); Alkaline Phosphatase 87 U/L (39-117); Anion Gap 15 (12-20); Aspartate Amino Transferase 27 U/L (5-37); Bilirubin Total 0.5 mg/dL (0.0-1.0); Blood Urea Nitrogen 14 mg/dL (9-16); Calcium 9.4 mg/dL (8.4-10.2); Carbon Dioxide 22 mmol/L (22-29); Chloride 105 mmol/L (96-108); Creatinine Clr Calc Pharmacy 84.1; Estimated Glomerular Filt Rate > 60; Glucose Random 110 mg/dL (60-115); Magnesium 1.8 mg/dL (1.6-2.6); Potassium 3.8 mmol/L (3.3-5.1); Sodium 138 mmol/L (135-145); Total Protein 7.8 g/dL (6.5-8.0)
[2023-04-29 13:20] LABS: Troponin-I High Sensitivity < 2.7 ng/L (<3.5-35.0)
[2023-04-29 13:23] LABS: COVID-19 Test Negative (Negative); IDNOW Serial# 08D9AD1C; IDNOW Serial# 9DB6401D; Influenza A Negative (Negative); Influenza B2 Negative (Negative)
[2023-04-29 13:49] VITALS: BP 148/100
== END 2023-04-29 13:54 | disposition home or self-care (01) ==
PROVIDERS: Physician Assistant Medical; Emergency Provider Emergency Medicine; PCP Internal Medicine
DX: R42 Dizziness and giddiness (principal); R51.9 Headache, unspecified; R94.31 Abnormal electrocardiogram [ECG] [EKG]; I10 Essential (primary) hypertension; Z79.899 Other long term (current) drug therapy; Z11.52 Encounter for screening for COVID-19
CPT/HCPCS: 70450; 71046; 80053; 83735; 84484; 85025; 87502; 87635; 93005; 99283; 99284

== ENCOUNTER → 2023-04-29 11:57 | Outpatient (BNV) | payer MEDICARE, SELFPAY | PROVIDERS: Emergency Provider Emergency Medicine; PCP Internal Medicine; Visit Provider Internal Medicine Cardiovascular Disease | DX: R94.31 Abnormal electrocardiogram [ECG] [EKG] (principal) | CPT/HCPCS: 93010 ==

== ENCOUNTER 2023-05-02 08:12 | Outpatient (AMB) | payer MEDICARE, SELFPAY ==
[2023-05-02 08:17] VITALS: BP 122/78; PULSE 111; O2SAT 98; BMI 25.8
--- NOTE | 2023-05-02 08:17 | MHC.PC.OV ---
Vital Signs 05/02/23 08:17 Height 5 ft 6 in Weight 160 lb BMI 25.8 BP 122/78 Blood Pressure Location Lt brachial Position Sitting Pulse 111 H Pulse Source Pulse Oximeter Pulse Oximetry (%) 98 Oxygen Delivery Method Room Air Intake Visit Reasons: [facility] [place] high bp Intake Note: Patient did have cough this morning. Also took 2 tabs rather than one of the lisinopril. Allergies No Known Allergies Allergy (Verified 05/02/23 08:17) Medication List - Last Reconciled 05/02/23 by Danielle Bunn MD carbamide peroxide 6.5% (Debrox) 5 drps otic (ears) DAILY 4 days lisinopril 10 mg PO DAILY loratadine 10 mg PO DAILY omeprazole 20 mg PO DAILY simvastatin 40 mg PO QPM 90 days tramadol 50 mg PO TID PRN Tobacco use date assessed: 05/02/23 Fall risk assessment: No Falls in past year Last assessed Fall Risk: 05/02/23 Dental Screening Dental Screen Date: 05/02/23 Did you have a dental visit in the last 12 months?: No Did you have a dental problem in the last 6 months where you did not have access to dental care?: No Was dental information given to patient?: No HPI [facility] [place] high bp HPI Details 67-year-old overweight male with a history of GERD hypercholesterolemia degenerative disc disease last seen in January 2023. Concern about an elevated blood pressure last seen and here for follow-up. Review of the notes ER visit felt dizzy and headache and elevated blood pressure placed on lisinopril 5 mg once a day. For today patient noted blood pressure to be elevated still and took double the dose of lisinopril once a day [facility] Medical History (Updated 05/02/23 @ 08:25 by Danielle Bunn MD) HTN (hypertension) Blood pressure elevated without history of HTN Colon cancer screening Fatty liver Degenerative disc disease Anemia Osteoarthritis Hypercholesterolemia Surgical History No pertinent past surgical history Family History Brother Alcohol abuse Sister FHx: ovarian cancer Social History Housing: Apartment Alcohol intake: never Patient Tobacco Use Status: Former Tobacco user Tobacco use type: Cigarette Years Smoked: quit 1999 e-Cigarette/Vaping Use: Never Used Second Hand Smoke Exposure: No service: No Current occupational status: unemployed Cognitive needs: No Hearing needs: No Vision needs: Yes (reading glasses) Questionnaire PHQ-9 Over the last 2 weeks, how often have you been bothered by any of the following problems? 1. Little interest or pleasure in doing things: not at all 2. Feeling down, depressed, or hopeless: not at all 3. Trouble falling or staying asleep, or sleeping too much: not at all 4. Feeling tired or having little energy: not at all 5. Poor appetite or overeating: not at all 6. Feeling bad about yourself - or that you are a failure or have let yourself or your family down: not at all 7. Trouble concentrating on things, such as reading the newspaper or watching television: not at all 8. Moving or speaking so slowly that other people could have noticed. Or the opposite - being so fidgety or restless that you have been moving around a lot more than usual: not at all 9. Thoughts that you would be better off or of hurting yourself in some way: not at all Total score: 0 Depression Screening Interpretation: Negative Depression Screening Done: Yes Source: Developed by Drs. Nikos Pretty, Yanely Clayton, Silvio Armando and colleagues, with an educational ariadne from [employer]. Thrive Questionnaire Date Thrive assessed: 05/02/23 I am a: Patient What is your living situation today?: I have a steady place to live Within the past 12 months, did the food you bought not last and you didn't have the money to get more?: Never true Within the past 12 months, did you worry whether your food would run out before you got money to buy more?: Never true Do you have trouble paying for medicines?: No Do you have trouble getting transportation to medical appointments?: No Do you have trouble paying your heating and electricity bill?: No Do you have trouble taking care of your child, family member or friend?: No Do you have trouble with day-to-day activities such as bathing, preparing meals, shopping, managing finances, etc.?: No Are you currently unemployed and looking for a job?: No Are you interested in more education?: No Currently or been in a relationship where the following occur: no concerns reported THRIVE Score: 0 AUDIT C Alcohol Use Questionnaire (AUDIT-C) 1. How often do you have a drink containing alcohol?: Never 3. How often do you have six or more drinks on one occasion?: Never Total Score: 0 Score Reviewed/Action Taken: Yes RITU-7 AMB Questionnaire RITU-7 Date RITU - 7 assessed: 05/02/23 Feeling nervous, anxious, or on edge: 0 = Not at all Not being able to stop or control worryin = Not at all Worrying too much about different things: 0 = Not at all Trouble relaxin = Not at all Being so restless that it is hard to sit still: 0 = Not at all Becoming easily annoyed or irritable: 0 = Not at all Feeling afraid as if something awful might happen: 0 = Not at all Total RITU-7 score (0-4 normal; 5-9 mild; 10-14 moderate; 15-21 severe): 0 Source: Developed by Drs. Nikos Pretty, Yanely Clayton, Silvio Armando and colleagues, with an educational ariadne from [employer]. Physical exam (Primary Care) Vital Signs: Last Vital Signs Pulse 111 H 05/02/23 08:17 BP 122/78 05/02/23 08:17 Pulse Ox 98 05/02/23 08:17 Oxygen Delivery Method Room Air 05/02/23 08:17 BMI result Body Mass Index 25.8 Tobacco/Smoking Status: Tobacco use Status Tobacco use date assessed 11/13/22 04/29/23 13:59 Patient Tobacco Use Status Former Tobacco user 04/29/23 13:59 Tobacco use type Cigarette 04/29/23 13:59 e-Cigarette/Vaping Use Never Used 04/29/23 13:59 Depression Screening Interpretation: Negative Thrive Assessment: Date of Thrive Assessment Date Thrive assessed 11/13/22 04/29/23 13:59 Currently or been in a relationship where the following occur: no concerns reported Const General: alert; No acute distress Eyes Conjunctivae: conjunctivae normal Resp Auscultation: clear to auscultation bilaterally Cardio Rate: regular rate Rhythm: regular rhythm GI Inspection: Yes normal to inspection Extrem General: Yes normal to inspection and No edema Assessment and Plan Assessment & Plan (1) HTN (hypertension): Code(s): I10 - Essential (primary) hypertension Qualifiers: Hypertension type: unspecified Qualified Code(s): I10 - Essential (primary) hypertension Plan: Continue with blood pressure medication. Decrease salt intake and exercise presently on will 10 mg once a day. Did discussed with the patient on concerns of changing blood pressure medication quickly as this can cause dizziness and even syncopal episodes. For now can stay on 10 mg once a day and will continue to monitor blood pressure. (2) Overweight (BMI 25.0-29.9): Code(s): E66.3 - Overweight Plan: Noted weight loss!! Diet and exercise. Low-salt diet low-cholesterol diet (3) GERD (gastroesophageal reflux disease): Code(s): K21.9 - Gastro-esophageal reflux disease without esophagitis Plan: Avoid the foods that causes that usually spicy foods, tomato products, juices, coffee, soda and foods that your sensitive to. After eating do not lie down, allow 3-4 hours before in lie down. And keep the head of bed above 30 degrees to avoid the acid from going up. (4) Hypercholesterolemia: Code(s): E78.00 - Pure hypercholesterolemia, unspecified Plan: Avoid fried foods, chicken skin, eggs, butter margarine, pastries and meat. Be it pork or beef they have a lot of cholesterol LDL goal of less than 130 and triglyceride of less than 150. Medications: Changed From lisinopril 5 mg PO DAILY 30 tabs 0RF I10 - Essential (primary) hypertension To lisinopril 10 mg PO DAILY 90 tabs 2RF I10 - Essential (primary) hypertension Coding Level of Care Code Est Pt Level 4 (84422) Diagnoses HTN (hypertension) I10 Hypertension type: unspecified Overweight (BMI 25.0-29.9) E66.3 GERD (gastroesophageal reflux disease) K21.9 Hypercholesterolemia E78.00 Additional Codes PHQ-9 - 57939 - PHQ-9 Billing: ([id number])
== END 2023-05-02 10:00 | disposition home or self-care (01) ==
PROVIDERS: PCP Internal Medicine; Visit Provider Internal Medicine
DX: I10 Essential (primary) hypertension (principal); E66.3 Overweight; K21.9 Gastro-esophageal reflux disease without esophagitis; E78.00 Pure hypercholesterolemia, unspecified
CPT/HCPCS: 99214

== ENCOUNTER 2023-08-06 07:21 | Outpatient (REF) | payer MEDICARE, SELFPAY ==
[2023-08-06 08:06] LABS: Basophils Percent Auto 0.2 % (0-2); Eosinophils Absolute Auto 0.3 X10*3/uL (0.0-0.4); Eosinophils Percent Auto 3.3 % (0-4); Hematocrit 43.2 % (42.0-52.0); Hemoglobin 14.5 g/dl (14.0-18.0); Imm Gran Abs Auto 0.02 X10*3/uL (0.00-0.03); Imm Gran Pct Auto 0.2 % (0.0-0.4); Lymphocytes Percent Auto 25.1 % (20-40); MANUAL DIFF FLAG SCAN; Mean Corpuscular HGB Conc 33.6 g/dl (31.0-36.0); Mean Corpuscular Hemoglobin 29.4 pg (27.0-33.0); Mean Corpuscular Volume 87.4 fL (80.0-98.0); Monocytes Absolute Auto 0.7 X10*3/uL (0.1-1.2); Monocytes Percent Auto 9.2 % (2-11); PLT CLUMP 1; Red Blood Count 4.94 X10*6/uL (4.60-5.80); Red Cell Distribution Width 12.8 % (11.0-16.0); SCAN SMEAR FLAG 1
[2023-08-06 08:42] LABS: Alanine Aminotransferase 17 U/L (0-40); Albumin Level 4.3 g/dL (3.5-5.0); Alkaline Phosphatase 82 U/L (39-117); Anion Gap 13 (12-20); Aspartate Amino Transferase 23 U/L (5-37); Bilirubin Total 0.8 mg/dL (0.0-1.0); Blood Urea Nitrogen 10 mg/dL (9-16); Calcium 9.7 mg/dL (8.4-10.2); Carbon Dioxide 26 mmol/L (22-29); Chloride 106 mmol/L (96-108); Cholesterol 150 mg/dL (<200); Estimated Glomerular Filt Rate > 60; Glucose Random 108 mg/dL (60-115); HDL Cholesterol 35 mg/dL (>40); LDL Cholesterol Calculated 79 mg/dL (<100); Potassium 4.3 mmol/L (3.3-5.1); Sodium 141 mmol/L (135-145); Total Protein 7.6 g/dL (6.5-8.0); Triglycerides 180 mg/dL (<150)
[2023-08-06 08:45] LABS: White Blood Count 8.1 X10*3/uL (4.8-10.8)
[2023-08-06 08:46] LABS: SLIDE REVIEW VERIFIED
[2023-08-06 09:00] LABS: Free T4 (Free Thyroxine) 1.02 ng/dL (0.71-1.85); Thyroid Stimulating Hormone 1.36 uIU/mL (0.32-4.0)
[2023-08-06 09:05] LABS: Folate 8.1 ng/mL (> or = 4.0); Prostate Specific Antigen Scr 0.36 ng/mL (<0.05-4.0); Vitamin B12 305 pg/mL (200-900)
== END 2023-08-06 07:22 | disposition home or self-care (01) ==
LOC: HO.LAB 07:21
PROVIDERS: PCP Internal Medicine; Visit Provider Internal Medicine
DX: E78.00 Pure hypercholesterolemia, unspecified (principal); Z12.5 Encounter for screening for malignant neoplasm of prostate
CPT/HCPCS: 36415; 80053; 80061; 82607; 82746; 84153; 84439; 84443; 85025

== ENCOUNTER 2023-08-14 08:17 | Outpatient (AMB) | payer MEDICARE, SELFPAY ==
[2023-08-14 08:31] VITALS: BP 112/72; PULSE 66; O2SAT 98; BMI 26.0
--- NOTE | 2023-08-14 08:31 | A.OFFPC_ITS ---
Vital Signs 08/14/23 08:31 Height 5 ft 6 in Weight 161 lb 0.4 oz BMI 26.0 BP 112/72 Blood Pressure Location Lt brachial Position Sitting Pulse 66 Pulse Source Pulse Oximeter Pulse Oximetry (%) 98 Oxygen Delivery Method Room Air Intake Visit Reasons: DDD lumbar and cervical, cholesterol Operations Architect Required: No Allergies No Known Allergies Allergy (Verified 08/14/23 08:32) Tobacco use date assessed: 08/14/23 Fall risk assessment: No Falls in past year Last assessed Fall Risk: 08/14/23 Dental Screening Dental Screen Date: 05/02/23 HPI DDD lumbar and cervical, cholesterol HPI Details 67 years old male with hypertension GERD and hypercholesterolemia last seen in 05/07/2023. Coming in for follow-up. Noted Cologuard testing was done in 11/04/2020. Blood work just done. Patient is doing good no problems no chest pains no shortness a breath no bowel bladder symptoms. Went through the blood work. Patient was concern about the right ear and wanted to have it test checked. [facility] Medical History (Updated 08/14/23 @ 08:45 by Danielle Bunn MD) Colon cancer screening HTN (hypertension) Blood pressure elevated without history of HTN Fatty liver Degenerative disc disease Anemia Osteoarthritis Hypercholesterolemia Surgical History No pertinent past surgical history Family History Brother Alcohol abuse Sister FHx: ovarian cancer Social History Housing: Apartment Alcohol intake: never Patient Tobacco Use Status: Former Tobacco user Tobacco use type: Cigarette Years Smoked: quit 1999 e-Cigarette/Vaping Use: Never Used Second Hand Smoke Exposure: No service: No Current occupational status: unemployed Cognitive needs: No Hearing needs: No Vision needs: Yes (reading glasses) Questionnaire Thrive Questionnaire Date Thrive assessed: 05/02/23 I am a: Patient What is your living situation today?: I have a steady place to live Within the past 12 months, did the food you bought not last and you didn't have the money to get more?: Never true Within the past 12 months, did you worry whether your food would run out before you got money to buy more?: Never true Do you have trouble paying for medicines?: No Do you have trouble getting transportation to medical appointments?: No Do you have trouble paying your heating and electricity bill?: No Do you have trouble taking care of your child, family member or friend?: No Do you have trouble with day-to-day activities such as bathing, preparing meals, shopping, managing finances, etc.?: No Are you currently unemployed and looking for a job?: No Are you interested in more education?: No Currently or been in a relationship where the following occur: no concerns reported THRIVE Score: 0 AUDIT C Alcohol Use Questionnaire (AUDIT-C) 1. How often do you have a drink containing alcohol?: Never 3. How often do you have six or more drinks on one occasion?: Never Total Score: 0 Score Reviewed/Action Taken: Yes RITU-7 AMB Questionnaire RITU-7 Date RITU - 7 assessed: 05/02/23 Source: Developed by Drs. Nikos Pretty, Yanely Clayton, Silvio Armando and colleagues, with an educational ariadne from [employer]. Physical exam (Primary Care) Vital Signs: Last Vital Signs Pulse 66 08/14/23 08:31 BP 112/72 08/14/23 08:31 Pulse Ox 98 08/14/23 08:31 Oxygen Delivery Method Room Air 08/14/23 08:31 BMI result Body Mass Index 26.0 Tobacco/Smoking Status: Tobacco use Status Tobacco use date assessed 08/14/23 08/14/23 08:32 Patient Tobacco Use Status Former Tobacco user 08/14/23 08:32 Tobacco use type Cigarette 08/14/23 08:32 e-Cigarette/Vaping Use Never Used 08/14/23 08:32 Thrive Assessment: Date of Thrive Assessment Date Thrive assessed 05/02/23 08/14/23 08:32 Currently or been in a relationship where the following occur: no concerns reported Const Other: TM bilateral intact minimal cerumen noted General: alert; No acute distress Eyes Conjunctivae: conjunctivae normal Resp Auscultation: clear to auscultation bilaterally Cardio Rate: regular rate Rhythm: regular rhythm GI Inspection: Yes normal to inspection Extrem General: Yes normal to inspection and No edema Assessment and Plan Assessment & Plan (1) Hypercholesterolemia: Code(s): E78.00 - Pure hypercholesterolemia, unspecified Plan: Avoid fried foods, chicken skin, eggs, butter margarine, pastries and meat. Be it pork or beef they have a lot of cholesterol LDL goal of less than 130 and triglyceride of less than 150 patient is on simvastatin 40 mg once a (2) Impaired glucose tolerance: Code(s): R73.02 - Impaired glucose tolerance (oral) Plan: Decrease the amount of carbohydrate intake, pasta, bread, rice and potatoes are all sugar and that is aside from all the sweet stuff, remember that fruits are good but they are Sweet also. (3) Colon cancer screening: Code(s): Z12.11 - Encounter for screening for malignant neoplasm of colon Plan: Patient is reminded about the Cologuard testing (4) HTN (hypertension): Code(s): I10 - Essential (primary) hypertension Qualifiers: Hypertension type: unspecified Qualified Code(s): I10 - Essential (primary) hypertension Plan: Continue with blood pressure medication. Decrease salt intake and exercise on lisinopril 10 mg once a day (5) GERD (gastroesophageal reflux disease): Code(s): K21.9 - Gastro-esophageal reflux disease without esophagitis Plan: Avoid the foods that causes that usually spicy foods, tomato products, juices, coffee, soda and foods that your sensitive to. After eating do not lie down, allow 3-4 hours before in lie down. And keep the head of bed above 30 degrees to avoid the acid from going up. Omeprazole 20 mg once a day (6) Degenerative disc disease: Comment: Cervical and lumbar PSS Plan: Keep active and continues to lose the weight. Coding Level of Care Code Est Pt Level 4 (17414) Complex EM visit Add On G2211 Diagnoses Hypercholesterolemia E78.00 Impaired glucose tolerance R73.02 Colon cancer screening Z12.11 HTN (hypertension) I10 Hypertension type: unspecified GERD (gastroesophageal reflux disease) K21.9 Degenerative disc disease
== END 2023-08-14 10:06 | disposition home or self-care (01) ==
PROVIDERS: PCP Internal Medicine; Visit Provider Internal Medicine
DX: E78.00 Pure hypercholesterolemia, unspecified (principal); R73.02 Impaired glucose tolerance (oral); Z12.11 Encounter for screening for malignant neoplasm of colon; I10 Essential (primary) hypertension; K21.9 Gastro-esophageal reflux disease without esophagitis
CPT/HCPCS: 99214; G2211

== ENCOUNTER 2023-11-12 07:04 | Emergency (ER) | payer MEDICARE, SELFPAY ==
[2023-11-12 07:09] VITALS: BP 136/82; PULSE 72; RESP 18; TEMP 36.8; O2SAT 99; BMI 27.1
--- NOTE | 2023-11-12 08:03 | ED.EYEPROB ---
HPI - Eye Problem General Chief complaint: Eye Problems Stated complaint: Swelling R eye Time Seen by Provider: 11/12/23 07:55 Source: patient Mode of arrival: ambulatory Limitations: no limitations History of Present Illness ED Provider: Dr. Jacob Rodriguez HPI Narrative: 68-year-old male with a history of hypertension, hyperlipidemia, GERD, DJD, anemia who presents emergency department for evaluation of insect bite to lateral aspect of the right orbit with erythema and increased warmth. The patient states that 2 days ago he had insect bite to the lateral aspect of the right orbit. He states that over the last 24 hours the erythema around the insect bite is increased and he has also had swelling underneath his right eye. The patient denied systemic symptoms such as fever, chills, nausea, vomiting. He denied headache, myalgias arthralgias. The patient has had no change in his vision. Related Data Home Medications ?Medication ?Instructions ?Recorded ?Confirmed loratadine 10 mg tablet 10 mg PO DAILY 11/13/22 05/02/23 Previous Rx's ?Medication ?Instructions ?Recorded omeprazole 20 mg capsule,delayed 20 mg PO DAILY #30 caps 11/02/21 release carbamide peroxide 6.5 % ear drops 5 drp otic (ears) DAILY 4 days #15 12/25/21 (Debrox) mL lisinopril 10 mg tablet 10 mg PO DAILY #90 tabs 05/02/23 simvastatin 40 mg tablet 40 mg PO QPM 90 days #90 tabs 07/21/23 tramadol 50 mg tablet 50 mg PO TID PRN pain #90 tabs 10/22/23 cephalexin 500 mg capsule 500 mg PO QID 5 days #20 caps 11/12/23 Allergies Allergy/AdvReac Type Severity Reaction Status Date / Time No Known Allergies Allergy Verified 11/12/23 07:11 Review of Systems Review of Systems: Yes all other systems are reviewed and are negative [facility] Past Medical History Medical History (Updated 11/13/23 @ 00:00 by Meggan Coates) Colon cancer screening HTN (hypertension) Blood pressure elevated without history of HTN Fatty liver Degenerative disc disease Anemia Osteoarthritis Hypercholesterolemia Surgical History No pertinent past surgical history Family History Family History Brother Alcohol abuse Sister FHx: ovarian cancer Social History Social History Housing: Apartment Alcohol intake: never Patient Tobacco Use Status: Former Tobacco user Tobacco use type: Cigarette Years Smoked: quit 1999 e-Cigarette/Vaping Use: Never Used Second Hand Smoke Exposure: No Advance Directives: No Advance Directives Information Provided: Yes Do you have a plan to hurt others: No Plan service: No Current occupational status: unemployed Cognitive needs: No Hearing needs: No Vision needs: Yes (reading glasses) Physical Exam Vital Signs: Vital Signs: Last Vital Signs Temp 98.2 F 11/12/23 08:30 Pulse 72 11/12/23 08:30 Resp 18 11/12/23 08:30 BP 136/82 11/12/23 08:30 Pulse Ox 99 11/12/23 08:30 O2 Del Method Room Air 11/12/23 08:30 BMI result Body Mass Index 27.1 Vital signs were normal Exam: General: Awake, alert in no distress Face/EENT: Patient does have a small raised area to the right lateral aspect of his orbit which is consistent with a insect bite this is surrounded by 2 cm of erythema with increased warmth, there is no induration or flocculence noted, the patient does have swelling underneath his left eye, pupils were equal round reactive to, sclera contact however normal extraocular muscles intact. Neck: Supple, no adenopathy Psych: Pleasant, cooperative Medical Decision Making Medical Decision Making MDM Narrative: 68-year-old male with a history of hypertension, hyperlipidemia, GERD, DJD, anemia who presents emergency department for evaluation of insect bite to lateral aspect of the right orbit 2 days prior with increased erythema with increased warmth. Patient had no difficulty with his vision, headache, myalgias arthralgias fever, chills or other systemic symptoms. Vital signs were unremarkable. Physical examination did reveal erythema to the right lateral aspect of his orbit with swelling underneath his right eye. Differential diagnosis: ?Includes but is not limited to cellulitis, abscess, reaction to insect foramen, allergic reaction Course: Patient's presentation physical findings are consistent with either reaction to insect venom or cellulitis with no evidence for an abscess. I did discuss these findings with the patient. The patient was started on Keflex 500 mg 4 times a day for 7 days. He was given printed and verbal instructions on cellulitis and he was discharged home. Prescription Management I considered prescription management with: Antibiotic Chronic Conditions Patient?s care impacted by: Hypertension and Other (Hyperlipidemia) Discharge Plan Discharge Clinical Impression: Cellulitis of face, Insect bite Patient Disposition: Home, Self-Care Additional Instructions: Cellulitis Discharge Instructions You have an infection of your skin. This is called cellulitis. This is usually caused by bacteria on your skin that gets under your skin and then causes the infection. Take Keflex 500 mg pills, 1 pill 4 times a day for 5 days. This is an antibiotic that should help your body fight off the infection. Keep the area of cellulitis elevated to help reduce swelling in the infected area and this helps with the healing process Also apply a heating pad on low or a warm compress for 15 minutes, 4-6 times a day. This will increase the blood flow to the area and will bring white blood cells to the area which will help your body fight off the infection. Take Motrin(ibuprofen) 200mg pills, 2 pills every 6 hours as needed for pain. Also take Tylenol( acetaminophen) 325 mg pills, 2 pills every 4 hours as needed for pain. If the redness may increase over the next 24 hours however should get better in the next 2-3 days, if the redness is increasing this is a sign that the infection is getting worse and you should see your doctor or return to the Emergency Department for a recheck. Other signs of worsening infection include fever, chills, weakness, increased pain, increased redness, increased swelling or red streaks going away from the area of infection. If you develop any of these symptoms or any other symptoms that are concerning to you, see your doctor immediately or return to the Emergency Department. Follow up with your doctor in 3 days for a recheck Please read the other printed instructions that we printed for you. Prescriptions: New cephalexin 500 mg capsule 500 mg PO QID 5 Days Qty: 20 0RF No Action simvastatin 40 mg tablet 40 mg PO QPM 90 Days Qty: 90 2RF tramadol 50 mg tablet 50 mg PO TID PRN (Reason: pain) Qty: 90 0RF omeprazole 20 mg capsule,delayed release(DR/EC) 20 mg PO DAILY Qty: 30 0RF lisinopril 10 mg tablet 10 mg PO DAILY Qty: 90 2RF loratadine 10 mg tablet 10 mg PO DAILY Debrox 6.5 % drops 5 drp otic (ears) DAILY 4 Days Qty: 15 0RF Interventions: ED Discharge Assessment Last Done: 11/12/23 08:30 Discharge Date/Time: 11/12/23 08:30 Print Language: Amharic
[2023-11-12 08:30] VITALS: BP 136/82; PULSE 72; RESP 18; TEMP 36.8; O2SAT 99
== END 2023-11-12 08:30 | disposition home or self-care (01) ==
PROVIDERS: Emergency Provider Emergency Medicine Emergency Medical Services; PCP Internal Medicine
DX: L03.211 Cellulitis of face (principal)
CPT/HCPCS: 99282; 99283

== ENCOUNTER 2023-11-20 08:32 | Outpatient (AMB) | payer MEDICARE, SELFPAY ==
[2023-11-20 08:38] VITALS: BP 118/68; PULSE 87; O2SAT 98; BMI 26.5
--- NOTE | 2023-11-20 08:38 | A.OFFPC_ITS ---
Vital Signs 11/20/23 08:38 Height 5 ft 5 in Weight 159 lb BMI 26.5 BP 118/68 Blood Pressure Location Lt brachial Position Sitting Pulse 87 Pulse Source Pulse Oximeter Pulse Oximetry (%) 98 Oxygen Delivery Method Room Air Intake Visit Reasons: Annual Exam Allergies No Known Allergies Allergy (Verified 11/20/23 08:39) Medication List - Last Reconciled 11/20/23 by Danielle Bunn MD carbamide peroxide 6.5% (Debrox) 5 drps otic (ears) DAILY 4 days lisinopril 10 mg PO DAILY loratadine 10 mg PO DAILY omeprazole 20 mg PO DAILY simvastatin 40 mg PO QPM 90 days tramadol 50 mg PO TID PRN Tobacco use date assessed: 11/20/23 Fall risk assessment: No Falls in past year Last assessed Fall Risk: 11/20/23 Dental Screening Dental Screen Date: 11/20/23 Did you have a dental visit in the last 12 months?: No Did you have a dental problem in the last 6 months where you did not have access to dental care?: No Was dental information given to patient?: No HPI Annual Exam HPI Details 68-year-old male with hypercholesterolem ia impaired glucose tolerance hypertension GERD last seen in July 2023. Patient had a Cologuard testing 11/04/2020. Patient is here for physical exam. Review of the notes in November 11 was in the emergency room for insect bite to the right orbit area. Patient was treated with Keflex. [facility] Medical History (Updated 11/13/23 @ 00:00 by Meggan Coates) Colon cancer screening HTN (hypertension) Blood pressure elevated without history of HTN Fatty liver Degenerative disc disease Anemia Osteoarthritis Hypercholesterolemia Surgical History No pertinent past surgical history Family History Brother Alcohol abuse Sister FHx: ovarian cancer Social History Housing: Apartment Alcohol intake: never Patient Tobacco Use Status: Former Tobacco user Tobacco use type: Cigarette Years Smoked: quit 1999 e-Cigarette/Vaping Use: Never Used Second Hand Smoke Exposure: No service: No Current occupational status: unemployed Cognitive needs: No Hearing needs: No Vision needs: Yes (reading glasses) Questionnaire PHQ-9 Over the last 2 weeks, how often have you been bothered by any of the following problems? 1. Little interest or pleasure in doing things: not at all 2. Feeling down, depressed, or hopeless: not at all 3. Trouble falling or staying asleep, or sleeping too much: not at all 4. Feeling tired or having little energy: not at all 5. Poor appetite or overeating: not at all 6. Feeling bad about yourself - or that you are a failure or have let yourself or your family down: not at all 7. Trouble concentrating on things, such as reading the newspaper or watching television: not at all 8. Moving or speaking so slowly that other people could have noticed. Or the opposite - being so fidgety or restless that you have been moving around a lot more than usual: not at all 9. Thoughts that you would be better off or of hurting yourself in some way: not at all Total score: 0 Depression Screening Interpretation: Negative Depression Screening Done: Yes Source: Developed by Drs. Nikos Pretty, Yanely Clayton, Silvio Armando and colleagues, with an educational ariadne from [employer]. Thrive Questionnaire Date Thrive assessed: 11/20/23 I am a: Parent/Caregiver What is your living situation today?: I have a steady place to live Within the past 12 months, did the food you bought not last and you didn't have the money to get more?: I choose not to answer this question Within the past 12 months, did you worry whether your food would run out before you got money to buy more?: I choose not to answer this question Do you have trouble paying for medicines?: I choose not to answer this question Do you have trouble getting transportation to medical appointments?: I choose not to answer this question Do you have trouble paying your heating and electricity bill?: I choose not to answer this question Do you have trouble taking care of your child, family member or friend?: I choose not to answer this question Do you have trouble with day-to-day activities such as bathing, preparing meals, shopping, managing finances, etc.?: I choose not to answer this question Are you currently unemployed and looking for a job?: I choose not to answer this question Are you interested in more education?: I choose not to answer this question Please select the resources that you would like help with: None Currently or been in a relationship where the following occur: I choose not to answer THRIVE Score: 0 AUDIT C Alcohol Use Questionnaire (AUDIT-C) 1. How often do you have a drink containing alcohol?: Never 3. How often do you have six or more drinks on one occasion?: Never Total Score: 0 RITU-7 AMB Questionnaire RITU-7 Date RITU - 7 assessed: 11/20/23 Feeling nervous, anxious, or on edge: 0 = Not at all Not being able to stop or control worryin = Not at all Worrying too much about different things: 0 = Not at all Trouble relaxin = Not at all Being so restless that it is hard to sit still: 0 = Not at all Becoming easily annoyed or irritable: 0 = Not at all Feeling afraid as if something awful might happen: 0 = Not at all Total RITU-7 score (0-4 normal; 5-9 mild; 10-14 moderate; 15-21 severe): 0 Source: Developed by Drs. Nikos Pretty, Yanely Clayton, Silvio Armando and colleagues, with an educational ariadne from [employer]. Review of Systems Const Denies poor appetite and Denies weakness Eyes Denies no additional complaints ENT Reports Normal hearing present, Denies dizziness, Denies nasal congestion, Denies tinnitus and Denies sore throat Card Denies chest pain, Denies syncope, Denies rapid heart rate and Denies dyspnea Resp Denies cough and Denies dyspnea GI Denies change in stool character, Reports constipation, Denies diarrhea, Denies nausea and Denies vomiting Denies dysuria and Denies urinary frequency Neuro Reports Normal hearing present, Denies confusion, Denies dizziness, Denies syncope and Denies weakness Psych Denies confusion Physical exam (Primary Care) Vital Signs: Last Vital Signs Pulse 87 11/20/23 08:38 BP 118/68 11/20/23 08:38 Pulse Ox 98 11/20/23 08:38 Oxygen Delivery Method Room Air 11/20/23 08:38 BMI result Body Mass Index 26.5 Tobacco/Smoking Status: Tobacco use Status Tobacco use date assessed 11/20/23 11/20/23 08:43 Patient Tobacco Use Status Former Tobacco user 11/20/23 08:43 Tobacco use type Cigarette 11/20/23 08:43 e-Cigarette/Vaping Use Never Used 11/20/23 08:43 PHQ-9: PHQ-9 Score PHQ-9: Total score 0 11/20/23 08:43 Depression Screening Interpretation: Negative Thrive Assessment: Date of Thrive Assessment Date Thrive assessed 11/20/23 11/20/23 08:43 Currently or been in a relationship where the following occur: I choose not to answer Const General: No confusion Orientation/consciousness: No confusion Neuro General: No confusion Cranial nerves: Yes Normal hearing present Assessment and Plan Assessment & Plan (1) Annual physical exam: Code(s): Z00.00 - Encounter for general adult medical examination without abnormal findings Plan: Patient is advised to eat healthy, keep well hydrated, keep active and have adequate sleep. (2) Hypercholesterolemia: Code(s): E78.00 - Pure hypercholesterolemia, unspecified Plan: Avoid fried foods, chicken skin, eggs, butter margarine, pastries and meat. Be it pork or beef they have a lot of cholesterol LDL goal of less than 130 and triglyceride of less than 150. Patient on simvastatin 40 mg once a day (3) Impaired glucose tolerance: Code(s): R73.02 - Impaired glucose tolerance (oral) Plan: Decrease the amount of carbohydrate intake, pasta, bread, rice and potatoes are all sugar and that is aside from all the sweet stuff, remember that fruits are good but they are Sweet also. (4) GERD (gastroesophageal reflux disease): Code(s): K21.9 - Gastro-esophageal reflux disease without esophagitis Plan: Avoid the foods that causes that usually spicy foods, tomato products, juices, coffee, soda and foods that your sensitive to. After eating do not lie down, allow 3-4 hours before in lie down. And keep the head of bed above 30 degrees to avoid the acid from going up. (5) Degenerative disc disease: Comment: Cervical and lumbar PSS Plan: Keep active and do exercises (6) HTN (hypertension): Code(s): I10 - Essential (primary) hypertension Qualifiers: Hypertension type: unspecified Qualified Code(s): I10 - Essential (primary) hypertension Plan: Continue with blood pressure medication. Decrease salt intake and exercise takes lisinopril 10 mg once a Orders: Orders Hemoglobin A1c 6 Months R73.02 - Impaired glucose tolerance (oral) Free T4 (Free Thyroxine) 6 Months I10 - Essential (primary) hypertension Comprehensive Met. Panel 6 Months R73.02 - Impaired glucose tolerance (oral) Complete Blood Count Auto Diff 6 Months R73.02 - Impaired glucose tolerance (oral) Lipid Panel 6 Months E78.00 - Pure hypercholesterolemia, unspecified, I10 - Essential (primary) hypertension Thyroid Stimulating Hormone 6 Months I10 - Essential (primary) hypertension Vitamin B12 and Folate 6 Months I10 - Essential (primary) hypertension Prostate Specific Antigen Scr 6 Months I10 - Essential (primary) hypertension Referrals Cologuard Test Z12.11 - Encounter for screening for malignant neoplasm of colon Medications: Refilled tramadol 50 mg PO TID PRN 90 tabs 0RF pain D64.9 - Anemia, unspecified Coding Level of Care Code Est Pt Prev Care >65y(74157) Diagnoses Annual physical exam Z00.00 Hypercholesterolemia E78.00 Impaired glucose tolerance R73.02 GERD (gastroesophageal reflux disease) K21.9 Degenerative disc disease HTN (hypertension) I10 Hypertension type: unspecified Additional Codes PHQ-9 - 68919 - PHQ-9 Billing: ([id number])
== END 2023-11-20 09:17 | disposition home or self-care (01) ==
PROVIDERS: PCP Internal Medicine; Visit Provider Internal Medicine
DX: Z00.00 Encounter for general adult medical examination without abnormal findings (principal); E78.00 Pure hypercholesterolemia, unspecified; R73.02 Impaired glucose tolerance (oral); K21.9 Gastro-esophageal reflux disease without esophagitis; I10 Essential (primary) hypertension
CPT/HCPCS: 99397

== ENCOUNTER 2024-03-03 09:04 | Outpatient (AMB) | payer MEDICARE, SELFPAY ==
[2024-03-03 09:37] VITALS: BP 122/78; PULSE 77; O2SAT 97; BMI 27.0
--- NOTE | 2024-03-03 09:37 | MHC.PC.OV ---
Vital Signs 03/03/24 09:37 Height 5 ft 5 in Weight 162 lb BMI 27.0 BP 122/78 Blood Pressure Location Lt brachial Position Sitting Pulse 77 Pulse Source Pulse Oximeter Pulse Oximetry (%) 97 Oxygen Delivery Method Room Air Intake Visit Reasons: LBP Allergies No Known Allergies Allergy (Verified 11/20/23 08:39) Tobacco use date assessed: 03/03/24 Fall risk assessment: No Falls in past year Last assessed Fall Risk: 03/03/24 Dental Screening Dental Screen Date: 11/20/23 HPI LBP HPI Details declined cologuardThe patient is a 68-year-old male presenting with a routine wellness examination and concerns regarding chronic back pain and recent weight gain. The back pain has been persistent since x-rays in 2020 revealed lumbar spinal malalignment and arthritis, yet MRI findings were not explicitly discussed. The patient reports discomfort is exacerbated by poor posture and unresolved by current activities. Although an exercise routine has been attempted, the patient perceives a lack of symptomatic improvement, noting stiffness and occasional radiating discomfort. He currently refrains from pursuing a Cologuard test, stating no family history of colon pathology in support of his decision. Recent weight gain has been observed, alongside increasing blood pressure. This is despite the patient's awareness of healthy dietary practices, albeit with wellness and holiday indulgences acknowledged as contributory. The patient is now receiving active management for hypertension and reports having received his flu and RSV vaccinations. No issues were reported with bowel movements or urination frequency excluding nocturia, which occurs infrequently. [facility] Medical History (Updated 03/03/24 @ 12:47 by Danielle Bunn MD) Colon cancer screening HTN (hypertension) Blood pressure elevated without history of HTN Fatty liver Degenerative disc disease Anemia Osteoarthritis Hypercholesterolemia Surgical History No pertinent past surgical history Family History Brother Alcohol abuse Sister FHx: ovarian cancer Social History Housing: Apartment Alcohol intake: never Patient Tobacco Use Status: Former Tobacco user Tobacco use type: Cigarette Years Smoked: quit 1999 e-Cigarette/Vaping Use: Never Used Second Hand Smoke Exposure: No service: No Current occupational status: unemployed Cognitive needs: No Hearing needs: No Vision needs: Yes (reading glasses) Questionnaire PHQ-9 Over the last 2 weeks, how often have you been bothered by any of the following problems? 1. Little interest or pleasure in doing things: not at all 2. Feeling down, depressed, or hopeless: not at all 3. Trouble falling or staying asleep, or sleeping too much: not at all 4. Feeling tired or having little energy: not at all 5. Poor appetite or overeating: not at all 6. Feeling bad about yourself - or that you are a failure or have let yourself or your family down: not at all 7. Trouble concentrating on things, such as reading the newspaper or watching television: not at all 8. Moving or speaking so slowly that other people could have noticed. Or the opposite - being so fidgety or restless that you have been moving around a lot more than usual: not at all 9. Thoughts that you would be better off or of hurting yourself in some way: not at all Total score: 0 Depression Screening Interpretation: Negative Depression Screening Done: Yes Source: Developed by Drs. Nikos Pretty, Yanely Clayton, Silvio Armando and colleagues, with an educational ariadne from [employer]. Thrive Questionnaire Date Thrive assessed: 03/03/24 I am a: Parent/Caregiver What is your living situation today?: I have a steady place to live Within the past 12 months, did the food you bought not last and you didn't have the money to get more?: I choose not to answer this question Within the past 12 months, did you worry whether your food would run out before you got money to buy more?: I choose not to answer this question Do you have trouble paying for medicines?: I choose not to answer this question Do you have trouble getting transportation to medical appointments?: I choose not to answer this question Do you have trouble paying your heating and electricity bill?: I choose not to answer this question Do you have trouble taking care of your child, family member or friend?: I choose not to answer this question Do you have trouble with day-to-day activities such as bathing, preparing meals, shopping, managing finances, etc.?: I choose not to answer this question Are you currently unemployed and looking for a job?: I choose not to answer this question Are you interested in more education?: I choose not to answer this question Please select the resources that you would like help with: None Currently or been in a relationship where the following occur: I choose not to answer THRIVE Score: 0 AUDIT C Alcohol Use Questionnaire (AUDIT-C) 1. How often do you have a drink containing alcohol?: Never 2. How many drinks containing alcohol do you have on a typical day when you are drinking?: 1 or 2 3. How often do you have six or more drinks on one occasion?: Never Total Score: 0 RITU-7 AMB Questionnaire RITU-7 Date RITU - 7 assessed: 11/20/23 Source: Developed by Drs. Nikos Pretty, Yanely Clayton, Silvio Armando and colleagues, with an educational ariadne from [employer]. Physical exam (Primary Care) Vital Signs: Last Vital Signs Pulse 77 03/03/24 09:37 BP 122/78 03/03/24 09:37 Pulse Ox 97 03/03/24 09:37 Oxygen Delivery Method Room Air 03/03/24 09:37 BMI result Body Mass Index 27.0 Tobacco/Smoking Status: Tobacco use Status Tobacco use date assessed 03/03/24 03/03/24 09:43 Patient Tobacco Use Status Former Tobacco user 03/03/24 09:43 Tobacco use type Cigarette 03/03/24 09:43 e-Cigarette/Vaping Use Never Used 03/03/24 09:43 PHQ-9: PHQ-9 Score PHQ-9: Total score 0 03/03/24 10:18 Depression Screening Interpretation: Negative Thrive Assessment: Date of Thrive Assessment Date Thrive assessed 03/03/24 03/03/24 09:43 Currently or been in a relationship where the following occur: I choose not to answer Const General: alert; No acute distress Eyes Conjunctivae: conjunctivae normal Resp Auscultation: clear to auscultation bilaterally Cardio Rate: regular rate Rhythm: regular rhythm GI Inspection: Yes normal to inspection Extrem General: Yes normal to inspection and No edema Coding Level of Care Code Est Pt Level 4 (97003) Diagnoses Impaired glucose tolerance R73.02 HTN (hypertension) I10 Hypertension type: unspecified Overweight (BMI 25.0-29.9) E66.3 Gastroesophageal reflux disease without esophagitis K21.9 Esophagitis presence: without esophagitis Hypercholesterolemia E78.00 Degeneration of intervertebral disc of lumbar region with discogenic back pain M51.360 Spinal region: lumbar Disc-related pain type: discogenic back pain only Assessment & Plan Assessment & Plan (1) Impaired glucose tolerance: Code(s): R73.02 - Impaired glucose tolerance (oral) Category: Medical Plan: Decrease the amount of carbohydrate intake, pasta, bread, rice and potatoes are all sugar and that is aside from all the sweet stuff, remember that fruits are good but they are Sweet also. (2) HTN (hypertension): Code(s): I10 - Essential (primary) hypertension Category: Medical Qualifiers: Hypertension type: unspecified Qualified Code(s): I10 - Essential (primary) hypertension Plan: Continue with blood pressure medication. Decrease salt intake and exercise on lisinopril 10 mg once a day (3) Overweight (BMI 25.0-29.9): Code(s): E66.3 - Overweight Category: Medical Plan: Diet and exercise (4) GERD (gastroesophageal reflux disease): Code(s): K21.9 - Gastro-esophageal reflux disease without esophagitis Category: Medical Qualifiers: Esophagitis presence: without esophagitis Qualified Code(s): K21.9 - Gastro-esophageal reflux disease without esophagitis Plan: Avoid the foods that causes that usually spicy foods, tomato products, juices, coffee, soda and foods that your sensitive to. After eating do not lie down, allow 3-4 hours before in lie down. And keep the head of bed above 30 degrees to avoid the acid from going up. (5) Hypercholesterolemia: Code(s): E78.00 - Pure hypercholesterolemia, unspecified Category: Medical Plan: Avoid fried foods, chicken skin, eggs, butter margarine, pastries and meat. Be it pork or beef they have a lot of cholesterol 08/05/2023 last blood work on simvastatin 40 mg once a day (6) Degenerative disc disease: Comment: Cervical and lumbar PSS Category: Medical Qualifiers: Spinal region: lumbar Disc-related pain type: discogenic back pain only Qualified Code(s): M51.360 - Other intervertebral disc degeneration, lumbar region with discogenic back pain only Plan: Try to keep active continue with pain medication as needed Plan - Continued monitoring and management of essential hypertension with dietary and lifestyle recommendations, specifically targeting nutritional balance and regular physical activity as pivotal. - Reassessment and possible adjustment in management for back pain secondary due to lumbar arthritis and alignment issues; emphasize improved posture and continuation of current lifestyle interventions, suggesting increased daily exercise. - Observed weight gain will be tackled by reassessing dietary habits and increased physical activity, incorporating patient preference to limit high-calorie snack intake outside special occasion allowances. - Review of nocturia, with a general recommendation for fluid reduction before sleep as a potential alleviating strategy. - Reinforce the benefits of preventative screenings and vaccinations, noting patient adherence to influenza and RSV protection. - Facilitate smooth transition of the patient's prescriptions to a preferred pharmacy, ensuring seamless continuity in medication management.
== END 2024-03-03 10:32 | disposition home or self-care (01) ==
PROVIDERS: PCP Internal Medicine; Visit Provider Internal Medicine
DX: R73.02 Impaired glucose tolerance (oral) (principal); I10 Essential (primary) hypertension; E66.3 Overweight; K21.9 Gastro-esophageal reflux disease without esophagitis; E78.00 Pure hypercholesterolemia, unspecified; M51.360 Other intervertebral disc degeneration, lumbar region with discogenic back pain only

== ENCOUNTER → 2024-03-03 09:04 | Outpatient (BNVA) | payer MEDICARE, SELFPAY | PROVIDERS: PCP Internal Medicine; Visit Provider Internal Medicine | DX: M51.360 Other intervertebral disc degeneration, lumbar region with discogenic back pain only (principal); E66.3 Overweight; R73.02 Impaired glucose tolerance (oral); I10 Essential (primary) hypertension; K21.9 Gastro-esophageal reflux disease without esophagitis; E78.00 Pure hypercholesterolemia, unspecified; Z68.27 Body mass index [BMI] 27.0-27.9, adult | CPT/HCPCS: 96127; 99212 ==

== ENCOUNTER 2024-06-03 08:04 | Outpatient (AMB) | payer MEDICARE, SELFPAY ==
--- NOTE | 2024-06-03 08:30 | MHC.PC.OV ---
Vital Signs 06/03/24 08:32 Height 5 ft 5 in Weight 161 lb 2 oz BMI 26.8 BP 120/74 Blood Pressure Location Lt brachial Position Sitting Pulse 80 Pulse Source Pulse Oximeter Temp 97.3 F Temp Source Temporal Artery Scan Pulse Oximetry (%) 98 Oxygen Delivery Method Room Air Intake Visit Reasons: LBP Intake Note: Patient is here to follow up on LBP. Registered Respiratory Therapist Required: No Cementing Bulk Material Operator: Not Required per policy Accompanied by: Self / Same As Patient Allergies No Known Allergies Allergy (Verified 06/03/24 08:31) Medication List - Last Reconciled 06/03/24 by Danielle Bunn MD lisinopril 10 mg PO DAILY loratadine 10 mg PO DAILY omeprazole 20 mg PO DAILY simvastatin 40 mg PO QPM 90 days tramadol 50 mg PO TID PRN Tobacco use date assessed: 06/03/24 Fall risk assessment: No Falls in past year Last assessed Fall Risk: 06/03/24 Dental Screening Dental Screen Date: 06/03/24 Did you have a dental visit in the last 12 months?: No Did you have a dental problem in the last 6 months where you did not have access to dental care?: No Was dental information given to patient?: No (Dentures) [facility] Medical History (Updated 03/03/24 @ 12:47 by Danielle Bunn MD) Colon cancer screening HTN (hypertension) Blood pressure elevated without history of HTN Fatty liver Degenerative disc disease Anemia Osteoarthritis Hypercholesterolemia Surgical History No pertinent past surgical history Family History Brother Alcohol abuse Sister FHx: ovarian cancer Social History Housing: Apartment Alcohol intake: never Patient Tobacco Use Status: Former Tobacco user Tobacco use type: Cigarette Years Smoked: quit 1999 e-Cigarette/Vaping Use: Never Used Second Hand Smoke Exposure: No service: No Current occupational status: unemployed Cognitive needs: No Hearing needs: No Vision needs: Yes (reading glasses) Questionnaire PHQ-9 Over the last 2 weeks, how often have you been bothered by any of the following problems? 1. Little interest or pleasure in doing things: not at all 2. Feeling down, depressed, or hopeless: not at all 3. Trouble falling or staying asleep, or sleeping too much: not at all 4. Feeling tired or having little energy: not at all 5. Poor appetite or overeating: not at all 6. Feeling bad about yourself - or that you are a failure or have let yourself or your family down: not at all 7. Trouble concentrating on things, such as reading the newspaper or watching television: not at all 8. Moving or speaking so slowly that other people could have noticed. Or the opposite - being so fidgety or restless that you have been moving around a lot more than usual: not at all 9. Thoughts that you would be better off or of hurting yourself in some way: not at all Total score: 0 Depression Screening Interpretation: Negative Depression Screening Done: Yes Source: Developed by Drs. Nikos Pretty, Yanely Clayton, Silvio Armando and colleagues, with an educational ariadne from [employer]. Thrive Questionnaire Date Thrive assessed: 06/03/24 I am a: Parent/Caregiver What is your living situation today?: I have a steady place to live Within the past 12 months, did the food you bought not last and you didn't have the money to get more?: I choose not to answer this question Within the past 12 months, did you worry whether your food would run out before you got money to buy more?: I choose not to answer this question Do you have trouble paying for medicines?: I choose not to answer this question Do you have trouble getting transportation to medical appointments?: I choose not to answer this question Do you have trouble paying your heating and electricity bill?: I choose not to answer this question Do you have trouble taking care of your child, family member or friend?: I choose not to answer this question Do you have trouble with day-to-day activities such as bathing, preparing meals, shopping, managing finances, etc.?: I choose not to answer this question Are you currently unemployed and looking for a job?: I choose not to answer this question Are you interested in more education?: I choose not to answer this question Please select the resources that you would like help with: None Currently or been in a relationship where the following occur: I choose not to answer THRIVE Score: 0 AUDIT C Alcohol Use Questionnaire (AUDIT-C) 1. How often do you have a drink containing alcohol?: Never Total Score: 0 RITU-7 AMB Questionnaire RITU-7 Date RITU - 7 assessed: 06/03/24 Feeling nervous, anxious, or on edge: 0 = Not at all Not being able to stop or control worryin = Not at all Worrying too much about different things: 0 = Not at all Trouble relaxin = Not at all Being so restless that it is hard to sit still: 0 = Not at all Becoming easily annoyed or irritable: 0 = Not at all Feeling afraid as if something awful might happen: 0 = Not at all Total RITU-7 score (0-4 normal; 5-9 mild; 10-14 moderate; 15-21 severe): 0 Source: Developed by Drs. Nikos Pretty, Yanely Clayton, Silvio Armando and colleagues, with an educational ariadne from [employer]. Physical exam (Primary Care) Vital Signs: Last Vital Signs Temp 97.3 F 06/03/24 08:32 Pulse 80 06/03/24 08:32 BP 120/74 06/03/24 08:32 Pulse Ox 98 06/03/24 08:32 Oxygen Delivery Method Room Air 06/03/24 08:32 BMI result Body Mass Index 26.8 Tobacco/Smoking Status: Tobacco use Status Tobacco use date assessed 06/03/24 06/03/24 08:36 Patient Tobacco Use Status Former Tobacco user 06/03/24 08:36 Tobacco use type Cigarette 06/03/24 08:36 e-Cigarette/Vaping Use Never Used 06/03/24 08:36 PHQ-9: PHQ-9 Score PHQ-9: Total score 0 06/03/24 08:36 Depression Screening Interpretation: Negative Thrive Assessment: Date of Thrive Assessment Date Thrive assessed 06/03/24 06/03/24 08:36 Currently or been in a relationship where the following occur: I choose not to answer Const General: alert; No acute distress Eyes Conjunctivae: conjunctivae normal Resp Auscultation: clear to auscultation bilaterally Cardio Rate: regular rate Rhythm: regular rhythm GI Inspection: Yes normal to inspection Extrem General: Yes normal to inspection and No edema Coding Level of Care Code Est Pt Level 4 (41430) Diagnoses Colon cancer screening Z12.11 Overweight (BMI 25.0-29.9) E66.3 Gastroesophageal reflux disease without esophagitis K21.9 Esophagitis presence: without esophagitis Fatty liver K76.0 Hypercholesterolemia E78.00 Assessment & Plan Assessment & Plan (1) Colon cancer screening: Code(s): Z12.11 - Encounter for screening for malignant neoplasm of colon Category: Medical Plan: Patient is reminded about Cologuard testing (2) Overweight (BMI 25.0-29.9): Code(s): E66.3 - Overweight Category: Medical Plan: Diet and exercise (3) GERD (gastroesophageal reflux disease): Code(s): K21.9 - Gastro-esophageal reflux disease without esophagitis Category: Medical Qualifiers: Esophagitis presence: without esophagitis Qualified Code(s): K21.9 - Gastro-esophageal reflux disease without esophagitis Plan: Avoid the foods that causes that usually spicy foods, tomato products, juices, coffee, soda and foods that your sensitive to. After eating do not lie down, allow 3-4 hours before in lie down. And keep the head of bed above 30 degrees to avoid the acid from going up. On omeprazole (4) Fatty liver: Code(s): K76.0 - Fatty (change of) liver, not elsewhere classified Category: Medical Plan: Low-fat diet and exercise (5) Hypercholesterolemia: Code(s): E78.00 - Pure hypercholesterolemia, unspecified Category: Medical Plan: Avoid fried foods, chicken skin, eggs, butter margarine, pastries and meat. Be it pork or beef they have a lot of cholesterol on simvastatin 40 mg once a day 08/05/2023 last blood work Plan History of Present Illness The patient is a 68-year-old male presenting for hypertension management and follow-up on laboratory results. He reports that his hypertension is well-controlled with lisinopril therapy and does not require adjustments or refills at this time. Blood pressure readings have remained stable, and no heightened symptoms have been reported. He is aware of blood work originally slated for completion six months post-November 2023 and remains prepared for the assessment within this timeline. The patient also has a background of hyperlipidemia managed with simvastatin 40 mg daily. His most recent laboratory evaluations in July 2023 reflected normal results, with lipid management showing an LDL of 79. In managing cholesterol levels, adherence to a low-fat diet and regular exercise is emphasized. Additionally, there is a history of nonalcoholic fatty liver disease. The patient is consistent in addressing this with lifestyle approaches focusing on caloric moderation and physical activity. Health Maintenance - Reminder of Cologuard testing (last test negative in October 2020) - Follow-up blood work needed prior to November, with focus on cholesterol and sugars - Low-fat diet and regular exercise recommended for hyperlipidemia and nonalcoholic fatty liver disease - Up-to-date vaccinations discussed; encouraged to sustain vaccination schedule - Discussion of mask utility amidst recent infections including COVID, flu, and RSV Social History - Patient reports being overweight. - Adheres to a low-fat diet plan to manage hyperlipidemia and fatty liver. - Current physical activity level includes exercise to assist with the lifestyle management of hypertensive and hepatic health. Review of Systems - Gastrointestinal: Denies changes in bowel habits. - Respiratory: Denies shortness of breath. - Musculoskeletal: Denies associated symptoms with stable pain management. - Neurological: Denies sweating. Physical Exam - Cardiovascular- Heart rate observed as regular. - Respiratory- Breathing observed as regular. - Gastrointestinal- No palpable concerns noted. Results - Labs from July 2023 indicated normal blood count, electrolytes, renal function, and an LDL of 79. Plan The patient's essential hypertension will remain managed through lisinopril, given stable blood pressure readings. Upcoming laboratory assessments will support ongoing management decisions related to antihypertensive and lipid-lowering therapy. Simvastatin remains part of the plan for hyperlipidemia, with a dietary focus on low-fat intake for cholesterol control and liver health. The management of nonalcoholic fatty liver disease maintains a strong lifestyle focus. Preventive health measures, including vaccinations and routine screenings, should continue to be emphasized. Patient was informed and verbally consented to the use of an ambient scribe for clinic note documentation during this visit. Discussion Notes I discussed the current state of the patient's essential hypertension, noting its excellent control with lisinopril. Assessments for future lab work were recommended before the November interval, focusing on lipids and glucoses. The management of hyperlipidemia, sustained on simvastatin with dietary regulation, was reiterated, with importance underscored for nonalcoholic fatty liver disease lifestyle strategies. We reviewed preventative care, including patient vaccination upkeep and the incremental significance of vaccines against current infectious risks, namely COVID, influenza, and RSV. The patient's engagement in health maintenance practices was counselled and affirmed with vaccination discussions. Patient Instructions - Continue taking lisinopril as prescribed for hypertension management. - Take simvastatin 40 mg daily as prescribed. - Follow a low-fat diet and exercise regularly to manage cholesterol and liver health. - Schedule and complete blood work prior to November, focusing on cholesterol and sugars. - Keep vaccinations up to date and remain vigilant against common infections. - Consider wearing masks in high-risk environments. - Follow up as planned in three months before November.
[2024-06-03 08:32] VITALS: BP 120/74; PULSE 80; TEMP 36.3; O2SAT 98; BMI 26.8
== END 2024-06-03 09:00 | disposition home or self-care (01) ==
LOC: HO.HMCH 08:04
PROVIDERS: PCP Internal Medicine; Visit Provider Internal Medicine
DX: Z12.11 Encounter for screening for malignant neoplasm of colon (principal); E66.3 Overweight; K21.9 Gastro-esophageal reflux disease without esophagitis; K76.0 Fatty (change of) liver, not elsewhere classified; E78.00 Pure hypercholesterolemia, unspecified

== ENCOUNTER → 2024-06-03 08:04 | Outpatient (BNVA) | payer MEDICARE, SELFPAY | PROVIDERS: PCP Internal Medicine; Visit Provider Internal Medicine | DX: E66.3 Overweight (principal); K21.9 Gastro-esophageal reflux disease without esophagitis; K76.0 Fatty (change of) liver, not elsewhere classified; E78.00 Pure hypercholesterolemia, unspecified | CPT/HCPCS: 99212 ==

== ENCOUNTER 2024-06-09 07:24 | Outpatient (REF) | payer MEDICARE, SELFPAY ==
[2024-06-09 10:33] LABS: Estimated Average Glucose 120 mg/dL; Hemoglobin A1c % 5.8 % (<6.0)
[2024-06-09 10:36] LABS: Basophils Percent Auto 0.2 % (0-2); Eosinophils Absolute Auto 0.2 X10*3/uL (0.0-0.4); Eosinophils Percent Auto 2.2 % (0-4); Hematocrit 40.6 % (42.0-52.0); Hemoglobin 13.9 g/dl (14.0-18.0); Imm Gran Abs Auto 0.04 X10*3/uL (0.00-0.03); Imm Gran Pct Auto 0.4 % (0.0-0.4); Lymphocytes Absolute Auto 1.8 X10*3/uL (1.2-4.9); Lymphocytes Percent Auto 19.5 % (20-40); MANUAL DIFF FLAG SCAN; Mean Corpuscular HGB Conc 34.2 g/dl (31.0-36.0); Mean Corpuscular Hemoglobin 29.3 pg (27.0-33.0); Mean Corpuscular Volume 85.7 fL (80.0-98.0); Monocytes Absolute Auto 0.8 X10*3/uL (0.1-1.2); Monocytes Percent Auto 8.6 % (2-11); Neutrophils Absolute Auto 6.5 x10*3/uL (2.0-8.3); Neutrophils Percent Auto 69.1 % (45-73); PLT CLUMP 1; Red Blood Count 4.74 X10*6/uL (4.60-5.80); Red Cell Distribution Width 12.7 % (11.0-16.0); SCAN SMEAR FLAG 1
[2024-06-09 11:15] LABS: Alanine Aminotransferase 19 U/L (0-40); Albumin Level 4.1 g/dL (3.5-5.0); Alkaline Phosphatase 78 U/L (39-117); Anion Gap 9 (12-20); Aspartate Amino Transferase 27 U/L (5-37); Bilirubin Total 0.4 mg/dL (0.0-1.0); Blood Urea Nitrogen 8 mg/dL (9-16); Calcium 8.9 mg/dL (8.4-10.2); Carbon Dioxide 25 mmol/L (22-29); Chloride 107 mmol/L (96-108); Cholesterol 141 mg/dL (<200); Estimated Glomerular Filt Rate > 60; Glucose Random 113 mg/dL (60-115); HDL Cholesterol 40 mg/dL (>40); LDL Cholesterol Calculated 66 mg/dL (<100); Potassium 4.2 mmol/L (3.3-5.1); Sodium 137 mmol/L (135-145); Total Protein 7.1 g/dL (6.5-8.0); Triglycerides 179 mg/dL (<150)
[2024-06-09 11:18] LABS: White Blood Count 9.5 X10*3/uL (4.8-10.8)
[2024-06-09 11:20] LABS: SLIDE REVIEW VERIFIED
[2024-06-09 11:56] LABS: Folate 5.7 ng/mL (> or = 4.0); Prostate Specific Antigen Scr 0.26 ng/mL (<0.05-4.0); Vitamin B12 298 pg/mL (200-900)
[2024-06-09 12:06] LABS: Free T4 (Free Thyroxine) 0.91 ng/dL (0.71-1.85); Thyroid Stimulating Hormone 1.38 uIU/mL (0.32-4.0)
== END 2024-06-09 07:25 | disposition home or self-care (01) ==
LOC: HO.10HDL 07:24
PROVIDERS: Visit Provider Internal Medicine
DX: R73.02 Impaired glucose tolerance (oral) (principal); E78.00 Pure hypercholesterolemia, unspecified; I10 Essential (primary) hypertension; Z12.5 Encounter for screening for malignant neoplasm of prostate
CPT/HCPCS: 36415; 80053; 80061; 82607; 82746; 83036; 84153; 84439; 84443; 85025

== ENCOUNTER 2024-09-09 07:57 | Outpatient (AMB) | payer MEDICARE, SELFPAY ==
[2024-09-09 08:12] VITALS: BP 132/86; PULSE 100; O2SAT 98; BMI 26.5
--- NOTE | 2024-09-09 08:12 | MHC.PC.OV ---
Vital Signs 09/09/24 08:12 Height 5 ft 5 in Weight 159 lb 4 oz BMI 26.5 BP 132/86 Blood Pressure Location Lt brachial Position Sitting Pulse 100 Pulse Source Pulse Oximeter Pulse Oximetry (%) 98 Oxygen Delivery Method Room Air Intake Visit Reasons: hypercholesterol Efficiency Miner Blasting Required: No Accompanied by: Self / Same As Patient Allergies No Known Allergies Allergy (Verified 09/09/24 08:22) Tobacco use date assessed: 09/09/24 Fall risk assessment: No Falls in past year Last assessed Fall Risk: 09/09/24 Dental Screening Dental Screen Date: 06/03/24 Did you have a dental visit in the last 12 months?: No Did you have a dental problem in the last 6 months where you did not have access to dental care?: No Was dental information given to patient?: No [facility] [place] Medical History (Updated 03/03/24 @ 12:47 by Danielle Bunn MD) Colon cancer screening HTN (hypertension) Blood pressure elevated without history of HTN Fatty liver Degenerative disc disease Anemia Osteoarthritis Hypercholesterolemia Surgical History No pertinent past surgical history Family History Brother Alcohol abuse Sister FHx: ovarian cancer Social History Housing: Apartment Alcohol intake: never Patient Tobacco Use Status: Former Tobacco user Tobacco use type: Cigarette Years Smoked: quit 1999 e-Cigarette/Vaping Use: Never Used Second Hand Smoke Exposure: No service: No Current occupational status: unemployed Cognitive needs: No Hearing needs: No Vision needs: Yes (reading glasses) Questionnaire PHQ-9 Over the last 2 weeks, how often have you been bothered by any of the following problems? 1. Little interest or pleasure in doing things: not at all 2. Feeling down, depressed, or hopeless: not at all 3. Trouble falling or staying asleep, or sleeping too much: not at all 4. Feeling tired or having little energy: not at all 5. Poor appetite or overeating: not at all 6. Feeling bad about yourself - or that you are a failure or have let yourself or your family down: not at all 7. Trouble concentrating on things, such as reading the newspaper or watching television: not at all 8. Moving or speaking so slowly that other people could have noticed. Or the opposite - being so fidgety or restless that you have been moving around a lot more than usual: not at all 9. Thoughts that you would be better off or of hurting yourself in some way: not at all Total score: 0 Source: Developed by Drs. Nikos Pretty, Yanely Clayton, Silvio Armando and colleagues, with an educational ariadne from [employer]. Thrive Questionnaire Date Thrive assessed: 09/09/24 I am a: Patient What is your living situation today?: I have a steady place to live Within the past 12 months, did the food you bought not last and you didn't have the money to get more?: I choose not to answer this question Within the past 12 months, did you worry whether your food would run out before you got money to buy more?: Never true Do you have trouble paying for medicines?: I choose not to answer this question Do you have trouble getting transportation to medical appointments?: I choose not to answer this question Do you have trouble paying your heating and electricity bill?: I choose not to answer this question Do you have trouble taking care of your child, family member or friend?: I choose not to answer this question Do you have trouble with day-to-day activities such as bathing, preparing meals, shopping, managing finances, etc.?: I choose not to answer this question Are you currently unemployed and looking for a job?: I choose not to answer this question Are you interested in more education?: I choose not to answer this question Please select the resources that you would like help with: None Currently or been in a relationship where the following occur: I choose not to answer THRIVE Score: 0 AUDIT C Alcohol Use Questionnaire (AUDIT-C) 1. How often do you have a drink containing alcohol?: Never 3. How often do you have six or more drinks on one occasion?: Never Total Score: 0 RITU-7 AMB Questionnaire RITU-7 Date RITU - 7 assessed: 09/09/24 Feeling nervous, anxious, or on edge: 0 = Not at all Not being able to stop or control worryin = Not at all Worrying too much about different things: 0 = Not at all Trouble relaxin = Not at all Being so restless that it is hard to sit still: 0 = Not at all Becoming easily annoyed or irritable: 0 = Not at all Feeling afraid as if something awful might happen: 0 = Not at all Total RITU-7 score (0-4 normal; 5-9 mild; 10-14 moderate; 15-21 severe): 0 Source: Developed by Drs. Nikos Pretty, Yanely Clayton, Silvio Armando and colleagues, with an educational ariadne from [employer]. Physical exam (Primary Care) Vital Signs: Last Vital Signs Pulse 100 09/09/24 08:12 BP 132/86 09/09/24 08:12 Pulse Ox 98 09/09/24 08:12 Oxygen Delivery Method Room Air 09/09/24 08:12 BMI result Body Mass Index 26.5 Tobacco/Smoking Status: Tobacco use Status Tobacco use date assessed 09/09/24 09/09/24 08:23 Patient Tobacco Use Status Former Tobacco user 09/09/24 08:15 Tobacco use type Cigarette 09/09/24 08:15 e-Cigarette/Vaping Use Never Used 09/09/24 08:15 PHQ-9: PHQ-9 Score PHQ-9: Total score 0 09/09/24 08:15 Thrive Assessment: Date of Thrive Assessment Date Thrive assessed 09/09/24 09/09/24 08:28 Currently or been in a relationship where the following occur: I choose not to answer Const General: alert; No acute distress Eyes Conjunctivae: conjunctivae normal Resp Auscultation: clear to auscultation bilaterally Cardio Rate: regular rate Rhythm: regular rhythm GI Inspection: Yes normal to inspection Extrem General: Yes normal to inspection and No edema Coding Level of Care Code Est Pt Level 4 (01947) Diagnoses HTN (hypertension) I10 Hypertension type: unspecified Hypercholesterolemia E78.00 Impaired glucose tolerance R73.02 Gastroesophageal reflux disease without esophagitis K21.9 Esophagitis presence: without esophagitis Anemia, unspecified type D64.9 Anemia type: unspecified type Assessment & Plan Assessment & Plan (1) HTN (hypertension): Code(s): I10 - Essential (primary) hypertension Category: Medical Qualifiers: Hypertension type: unspecified Qualified Code(s): I10 - Essential (primary) hypertension Plan: Continue with blood pressure medication. Decrease salt intake and exercise patient on lisinopril 10 mg once a day (2) Hypercholesterolemia: Code(s): E78.00 - Pure hypercholesterolemia, unspecified Category: Medical Plan: Avoid fried foods, chicken skin, eggs, butter margarine, pastries and meat. Be it pork or beef they have a lot of cholesterol LDL goal of less than 130 and triglyceride of less than 150 on simvastatin 40 mg once a day (3) Impaired glucose tolerance: Code(s): R73.02 - Impaired glucose tolerance (oral) Category: Medical Plan: Decrease the amount of carbohydrate intake, pasta, bread, rice and potatoes are all sugar and that is aside from all the sweet stuff, remember that fruits are good but they are Sweet also. (4) GERD (gastroesophageal reflux disease): Code(s): K21.9 - Gastro-esophageal reflux disease without esophagitis Category: Medical Qualifiers: Esophagitis presence: without esophagitis Qualified Code(s): K21.9 - Gastro-esophageal reflux disease without esophagitis Plan: Avoid the foods that causes that usually spicy foods, tomato products, juices, coffee, soda and foods that your sensitive to. After eating do not lie down, allow 3-4 hours before in lie down. And keep the head of bed above 30 degrees to avoid the acid from going up. (5) Anemia: Code(s): D64.9 - Anemia, unspecified Category: Medical Qualifiers: Anemia type: unspecified type Qualified Code(s): D64.9 - Anemia, unspecified Plan: Very mild and will continue to monitor Plan History of Present Illness The patient is a 68-year-old male presenting for a follow-up visit. He has a history of hypercholesterolemia, nonalcoholic fatty liver disease, gastroesophageal reflux disease (GERD), hypertension, and impaired glucose tolerance. The patient was last seen in May 2024 and has declined Cologuard testing and colonoscopy for colon cancer screening. The patient's last blood work in May 2024 showed mild anemia with hemoglobin at 13.9 g/dL and hematocrit at 40.6%. Electrolytes and renal function were normal, with a hemoglobin A1c of 5.8%, indicating impaired glucose tolerance. Liver function tests were normal, but triglycerides were elevated at 179 mg/dL, and vitamin B12 was slightly low at 298 pg/mL. The patient is currently on lisinopril 10 mg daily for hypertension and simvastatin 40 mg daily for hypercholesterolemia. He reports consuming a high amount of popsicles, which may contribute to his elevated blood sugar levels. The patient has received his second shingles vaccination two weeks ago and is up to date with his vaccines. Health Maintenance - Vaccinations: Received second shingles vaccination two weeks ago - Preventative care: Declined colon cancer screening with stool test and colonoscopy Social History - Nutrition: Reports high consumption of popsicles Review of Systems - Cardiovascular: Denies chest pain or palpitations - Respiratory: Denies dyspnea or cough - Gastrointestinal: Denies changes in bowel movements - Genitourinary: Denies dysuria or hematuria Physical Exam - Cardiovascular: Regular rate and rhythm, no murmurs detected - Respiratory: Normal breath sounds, no wheezing or crackles - Extremities: No edema noted Results - Labs: Hemoglobin 13.9 g/dL, Hematocrit 40.6%, Hemoglobin A1c 5.8%, Triglycerides 179 mg/dL, Vitamin B12 298 pg/mL Plan The patient will continue on lisinopril 10 mg daily for hypertension management and simvastatin 40 mg daily for hypercholesterolemia. Dietary modifications are recommended to address elevated triglycerides and impaired glucose tolerance, including reducing sugar intake and increasing physical activity. The patient is advised to consider vitamin supplementation to address the slight deficiency noted in recent lab results. The patient is encouraged to maintain regular follow-up appointments to monitor blood pressure, cholesterol levels, and glucose tolerance. A repeat fasting blood sugar test is planned for three months from now to reassess glucose levels. The patient is up to date with vaccinations, having recently received the second shingles shot. Patient was informed and verbally consented to the use of an ambient scribe for clinic note documentation during this visit. Discussion Notes During the visit, I discussed with the patient the importance of managing his hypercholesterolemia and hypertension through medication adherence and lifestyle modifications. We reviewed his recent lab results, noting the mild anemia and vitamin B12 deficiency, and I recommended considering supplementation. I emphasized the need to reduce sugar intake and increase physical activity to manage his impaired glucose tolerance and elevated triglycerides. The patient was informed about the plan to repeat fasting blood sugar testing in three months and to continue monitoring his health parameters regularly. We also discussed his recent shingles vaccination and confirmed that he is up to date with his immunizations. Patient Instructions - Continue taking lisinopril 10 mg and simvastatin 40 mg daily as prescribed. - Reduce sugar intake and increase physical activity to help manage blood sugar and triglyceride levels. - Consider taking a vitamin B12 supplement to address deficiency. - Schedule a follow-up appointment in three months for repeat fasting blood sugar testing. - Stay up to date with vaccinations. Orders: Orders Complete Blood Count Auto Diff 3 Months R73.02 - Impaired glucose tolerance (oral) Hemoglobin A1c 3 Months R73.02 - Impaired glucose tolerance (oral) Lipid Panel 3 Months E78.00 - Pure hypercholesterolemia, unspecified, R73.02 - Impaired glucose tolerance (oral) Thyroid Stimulating Hormone 3 Months R73.02 - Impaired glucose tolerance (oral) Vitamin B12 and Folate 3 Months R73.02 - Impaired glucose tolerance (oral) Comprehensive Met. Panel 3 Months R73.02 - Impaired glucose tolerance (oral) Prostate Specific Antigen Scr 3 Months R73.02 - Impaired glucose tolerance (oral) Free T4 (Free Thyroxine) 3 Months R73.02 - Impaired glucose tolerance (oral)
== END 2024-09-09 13:26 | disposition home or self-care (01) ==
LOC: HO.HMCH 07:57
PROVIDERS: PCP Internal Medicine; Visit Provider Internal Medicine
DX: I10 Essential (primary) hypertension (principal); E78.00 Pure hypercholesterolemia, unspecified; R73.02 Impaired glucose tolerance (oral); K21.9 Gastro-esophageal reflux disease without esophagitis; D64.9 Anemia, unspecified

== ENCOUNTER → 2024-09-09 07:57 | Outpatient (BNVA) | payer MEDICARE, SELFPAY | PROVIDERS: PCP Internal Medicine; Visit Provider Internal Medicine | DX: I10 Essential (primary) hypertension (principal); E78.00 Pure hypercholesterolemia, unspecified; R73.02 Impaired glucose tolerance (oral); K21.9 Gastro-esophageal reflux disease without esophagitis; D64.9 Anemia, unspecified | CPT/HCPCS: 96127; 99212 ==

== ENCOUNTER 2024-11-19 07:13 | Outpatient (REF) | payer MEDICARE, SELFPAY ==
[2024-11-19 07:52] LABS: Hematocrit 39.4 % (42.0-52.0); Hemoglobin 13.3 g/dl (14.0-18.0); Imm Gran Abs Auto 0.04 X10*3/uL (0.00-0.03); Imm Gran Pct Auto 0.4 % (0.0-0.4); Lymphocytes Absolute Auto 2.2 X10*3/uL (1.2-4.9); Mean Corpuscular HGB Conc 33.8 g/dl (31.0-36.0); Mean Corpuscular Hemoglobin 28.4 pg (27.0-33.0); Mean Corpuscular Volume 84.2 fL (80.0-98.0); NRBC Abs Auto 0.000 X10*3/uL (0.0-0.012); NRBC Pct Auto 0.0 /100WBC (0.0-0.2); Red Blood Count 4.68 X10*6/uL (4.60-5.80); White Blood Count 9.5 X10*3/uL (4.8-10.8)
[2024-11-19 07:54] LABS: MANUAL DIFF FLAG SCAN
[2024-11-19 08:09] LABS: Hemoglobin A1C 135.7753 umol/L; Total Hemoglobin (HGBA1C) 3461.3538 umol/L
[2024-11-19 08:26] LABS: Alanine Aminotransferase 24 U/L (0-40); Albumin Level 4.6 g/dL (3.5-5.0); Alkaline Phosphatase 82 U/L (39-117); Anion Gap 12 (12-20); Aspartate Amino Transferase 30 U/L (5-37); Blood Urea Nitrogen 9 mg/dL (9-16); Calcium 9.5 mg/dL (8.4-10.2); Carbon Dioxide 29 mmol/L (22-29); Chloride 106 mmol/L (96-108); Cholesterol 165 mg/dL (<200); Estimated Glomerular Filt Rate > 60; HDL Cholesterol 39 mg/dL (>40); Potassium 4.9 mmol/L (3.3-5.1); Sodium 142 mmol/L (135-145); Total Protein 7.7 g/dL (6.5-8.0); Triglycerides 199 mg/dL (<150)
[2024-11-19 08:48] LABS: Free T4 (Free Thyroxine) 0.93 ng/dL (0.71-1.85); Thyroid Stimulating Hormone 1.80 uIU/mL (0.32-4.0)
[2024-11-19 08:50] LABS: Folate 15.3 ng/mL (> or = 4.0); Vitamin B12 359 pg/mL (200-900)
== END 2024-11-19 07:14 | disposition home or self-care (01) ==
LOC: HO.LAB 07:13
PROVIDERS: Visit Provider Internal Medicine
DX: R73.02 Impaired glucose tolerance (oral) (principal); E78.00 Pure hypercholesterolemia, unspecified; Z12.5 Encounter for screening for malignant neoplasm of prostate
CPT/HCPCS: 36415; 80053; 80061; 82607; 82746; 83036; 84153; 84439; 84443; 85025

== ENCOUNTER 2024-11-26 08:19 | Outpatient (AMB) | payer MEDICARE, SELFPAY ==
--- NOTE | 2024-11-26 09:03 | MHC.PC.OV ---
Vital Signs 11/26/24 09:04 Height 5 ft 5 in Weight 161 lb 6 oz BMI 26.9 BP 122/70 Blood Pressure Location Lt brachial Position Sitting Pulse 88 Pulse Source Pulse Oximeter Temp 97.1 F Temp Source Temporal Artery Scan Pulse Oximetry (%) 95 Oxygen Delivery Method Room Air Intake Visit Reasons: Annual Exam Allergies No Known Allergies Allergy (Verified 11/26/24 09:11) Medication List - Last Reconciled 11/26/24 by Danielle Bunn MD lisinopril 10 mg PO DAILY loratadine 10 mg PO DAILY omeprazole 20 mg PO DAILY simvastatin 40 mg PO QPM 90 days tramadol 50 mg PO TID PRN Tobacco use date assessed: 11/26/24 Fall risk assessment: No Falls in past year Last assessed Fall Risk: 11/26/24 Dental Screening Dental Screen Date: 11/26/24 Did you have a dental visit in the last 12 months?: No Did you have a dental problem in the last 6 months where you did not have access to dental care?: No Was dental information given to patient?: Patient declined [facility] Medical History Colon cancer screening HTN (hypertension) Blood pressure elevated without history of HTN Fatty liver Degenerative disc disease Anemia Osteoarthritis Hypercholesterolemia Surgical History No pertinent past surgical history Family History Brother Alcohol abuse Sister FHx: ovarian cancer Social History Housing: Apartment Alcohol intake: never Patient Tobacco Use Status: Former Tobacco user Tobacco use type: Cigarette Years Smoked: quit 1999 e-Cigarette/Vaping Use: Never Used Second Hand Smoke Exposure: No service: No Current occupational status: unemployed Cognitive needs: No Hearing needs: No Vision needs: Yes (reading glasses) Questionnaire PHQ-9 Over the last 2 weeks, how often have you been bothered by any of the following problems? 1. Little interest or pleasure in doing things: not at all 2. Feeling down, depressed, or hopeless: not at all 3. Trouble falling or staying asleep, or sleeping too much: not at all 4. Feeling tired or having little energy: not at all 5. Poor appetite or overeating: not at all 6. Feeling bad about yourself - or that you are a failure or have let yourself or your family down: not at all 7. Trouble concentrating on things, such as reading the newspaper or watching television: not at all 8. Moving or speaking so slowly that other people could have noticed. Or the opposite - being so fidgety or restless that you have been moving around a lot more than usual: not at all 9. Thoughts that you would be better off or of hurting yourself in some way: not at all Total score: 0 Source: Developed by Drs. Nikos Pretty, Yanely Clayton, Silvio Armando and colleagues, with an educational ariadne from [employer]. Thrive Questionnaire Date Thrive assessed: 09/02/24 I am a: Patient What is your living situation today?: I have a steady place to live Within the past 12 months, did the food you bought not last and you didn't have the money to get more?: I choose not to answer this question Within the past 12 months, did you worry whether your food would run out before you got money to buy more?: Never true Do you have trouble paying for medicines?: I choose not to answer this question Do you have trouble getting transportation to medical appointments?: I choose not to answer this question Do you have trouble paying your heating and electricity bill?: I choose not to answer this question Do you have trouble taking care of your child, family member or friend?: I choose not to answer this question Do you have trouble with day-to-day activities such as bathing, preparing meals, shopping, managing finances, etc.?: I choose not to answer this question Are you currently unemployed and looking for a job?: I choose not to answer this question Are you interested in more education?: I choose not to answer this question Please select the resources that you would like help with: None Currently or been in a relationship where the following occur: I choose not to answer THRIVE Score: 0 AUDIT C Alcohol Use Questionnaire (AUDIT-C) 1. How often do you have a drink containing alcohol?: Never 3. How often do you have six or more drinks on one occasion?: Never Total Score: 0 RITU-7 AMB Questionnaire RITU-7 Date RITU - 7 assessed: 09/09/24 Feeling nervous, anxious, or on edge: 0 = Not at all Not being able to stop or control worryin = Not at all Worrying too much about different things: 0 = Not at all Trouble relaxin = Not at all Being so restless that it is hard to sit still: 0 = Not at all Becoming easily annoyed or irritable: 0 = Not at all Feeling afraid as if something awful might happen: 0 = Not at all Total RITU-7 score (0-4 normal; 5-9 mild; 10-14 moderate; 15-21 severe): 0 Source: Developed by Drs. Nikos Pretty, Yanely Clayton, Silvio Armando and colleagues, with an educational ariadne from [employer]. Review of Systems Const Denies poor appetite and Denies weakness Eyes Denies no additional complaints ENT Reports Normal hearing present, Denies dizziness, Denies nasal congestion, Denies tinnitus and Denies sore throat Card Denies chest pain, Denies syncope, Denies rapid heart rate and Denies dyspnea Resp Denies cough and Denies dyspnea GI Denies change in stool character, Reports constipation, Denies diarrhea, Denies nausea and Denies vomiting Denies dysuria and Denies urinary frequency Neuro Reports Normal hearing present, Denies confusion, Denies dizziness, Denies syncope and Denies weakness Psych Denies confusion Physical exam (Primary Care) Vital Signs: Last Vital Signs Temp 97.1 F 11/26/24 09:04 Pulse 88 11/26/24 09:04 BP 122/70 11/26/24 09:04 Pulse Ox 95 11/26/24 09:04 Oxygen Delivery Method Room Air 11/26/24 09:04 BMI result Body Mass Index 26.9 Tobacco/Smoking Status: Tobacco use Status Tobacco use date assessed 11/26/24 11/26/24 09:11 Patient Tobacco Use Status Former Tobacco user 11/26/24 09:11 Tobacco use type Cigarette 11/26/24 09:11 e-Cigarette/Vaping Use Never Used 11/26/24 09:11 PHQ-9: PHQ-9 Score PHQ-9: Total score 0 11/26/24 09:23 Thrive Assessment: Date of Thrive Assessment Date Thrive assessed 09/02/24 11/26/24 09:11 Currently or been in a relationship where the following occur: I choose not to answer Const General: No confusion Orientation/consciousness: No confusion HENMT Head: Yes normocephalic Ears: external ears normal and TM's normal bilaterally Face and sinus: Yes normal facial exam Mouth: moist mucous membranes Throat: Yes tonsils normal Eyes Conjunctivae: conjunctivae normal Pupils: Equal, round and reactive pupils present and Pupil accommodation reflex normal Direct Ophthalmoscopy: normal light reflex Neck Neck: No lymphadenopathy Thyroid: Thyroid normal Chest Chest palpation & inspection: normal inspection of the chest Resp Effort & Inspection: normal respiratory effort and no audible wheezes Auscultation: clear to auscultation bilaterally, no crackles, no wheezes and lung sounds not diminished Cardio Rate: regular rate Rhythm: regular rhythm Peripheral pulses: radial pulses present and dorsalis pedis present GI Other: guaiac positive stools and N prostate Palpation (GI): no masses Auscultation: normal bowel sounds and normoactive bowel sounds Male General Exam: Yes normal external exam Skin General skin exam: no rashes or lesions noted Rashes: no rashes Neuro General: No confusion Cranial nerves: Yes Equal, round and reactive pupils present and Yes Normal hearing present Cognition (Neuro): normal cognition Gait exam (Neuro): Normal gait present Motor exam (neuro): 5/5 motor strength present throughout Deep tendon reflexes (DTR's): Right brachioradialis reflex intensity grade: 2+, Left brachioradialis reflex intensity grade: 2+, Right patellar reflex intensity grade: 2+ and Left patellar reflex intensity grade: 2+ Extrem General: No edema Coding Level of Care Code Est Pt Prev Care >65y(89663) Diagnoses Annual physical exam Z00.00 Anemia, unspecified type D64.9 Anemia type: unspecified type Fatty liver K76.0 Gastroesophageal reflux disease without esophagitis K21.9 Esophagitis presence: without esophagitis Impaired glucose tolerance R73.02 HTN (hypertension) I10 Hypertension type: unspecified Hypercholesterolemia E78.00 Lumbar degenerative disc disease M51.369 Guaiac + stool R19.5 Assessment & Plan Assessment & Plan (1) Annual physical exam: Code(s): Z00.00 - Encounter for general adult medical examination without abnormal findings Category: Medical Plan: Patient is advised to eat healthy, keep well hydrated, keep active and have adequate sleep. (2) Anemia: Code(s): D64.9 - Anemia, unspecified Category: Medical Qualifiers: Anemia type: unspecified type Qualified Code(s): D64.9 - Anemia, unspecified Plan: Mild anemia will continue to monitor (3) Fatty liver: Code(s): K76.0 - Fatty (change of) liver, not elsewhere classified Category: Medical Plan: Low-fat diet and exercise (4) GERD (gastroesophageal reflux disease): Code(s): K21.9 - Gastro-esophageal reflux disease without esophagitis Category: Medical Qualifiers: Esophagitis presence: without esophagitis Qualified Code(s): K21.9 - Gastro-esophageal reflux disease without esophagitis Plan: Avoid the foods that causes that usually spicy foods, tomato products, juices, coffee, soda and foods that your sensitive to. After eating do not lie down, allow 3-4 hours before in lie down. And keep the head of bed above 30 degrees to avoid the acid from going up. On omeprazole (5) Impaired glucose tolerance: Code(s): R73.02 - Impaired glucose tolerance (oral) Category: Medical Plan: Decrease the amount of carbohydrate intake, pasta, bread, rice and potatoes are all sugar and that is aside from all the sweet stuff, remember that fruits are good but they are Sweet also. (6) HTN (hypertension): Code(s): I10 - Essential (primary) hypertension Category: Medical Qualifiers: Hypertension type: unspecified Qualified Code(s): I10 - Essential (primary) hypertension Plan: Continue with blood pressure medication. Decrease salt intake and exercise patient is on lisinopril 10 mg once a day (7) Hypercholesterolemia: Code(s): E78.00 - Pure hypercholesterolemia, unspecified Category: Medical Plan: Avoid fried foods, chicken skin, eggs, butter margarine, pastries and meat. Be it pork or beef they have a lot of cholesterol LDL goal of less than 130 and triglyceride of less than 150 on simvastatin 40 mg once a day (8) Lumbar degenerative disc disease: Code(s): M51.369 - Other intervertebral disc degeneration, lumbar region without mention of lumbar back pain or lower extremity pain Category: Medical (9) Guaiac + stool: Code(s): R19.5 - Other fecal abnormalities Category: Medical Plan: patient declined referral to gastroenterology for EGD and colon test despite anemia, will request for blood work Plan History of Present Illness The patient is a 69-year-old male presenting for a physical examination and management of chronic conditions. The patient has a history of hypercholesterolemia, managed with simvastatin 40 mg daily, with a current LDL level of 87 mg/dL, which is within the target range. Triglycerides are elevated at 199 mg/dL, but not currently being treated. The patient has hepatic steatosis, with liver function tests reported as normal. Gastroesophageal reflux disease is managed with omeprazole, and the patient reports no current symptoms of heartburn. Hypertension is controlled with lisinopril 10 mg daily, and recent blood pressure readings are within normal limits. The patient has impaired glucose tolerance with a hemoglobin A1c of 5.7%, improved from a previous level of 5.8%. Mild anemia was noted with a hemoglobin level of 13.3 g/dL, and the patient is taking an iron supplement as advised. The patient declined a colonoscopy and Cologuard test, despite the anemia. The patient has lumbar degenerative disc disease, with tramadol prescribed for pain management as needed. Health Maintenance - Colon cancer screening: Patient declined colonoscopy and Cologuard test - Diet and exercise: Advised low-fat diet and regular exercise - Vaccinations: Shingles vaccine received recently Social History - Exercise: Patient walks daily, weather permitting, in local [place] and streets - Substance use: No alcohol consumption, quit smoking 30 years ago - Nutrition: Consumes approximately four glasses of water daily, advised to increase intake Review of Systems - General: Denies fever, dizziness, or syncope - Cardiovascular: Denies chest pain or palpitations - Respiratory: Denies dyspnea or cough - Gastrointestinal: Denies nausea, vomiting, or heartburn - Genitourinary: Denies dysuria or nocturia - Neurological: Denies headaches or tinnitus Physical Exam General: Cooperative, healthy appearing, comfortable, no acute distress and well developed Orientation: Patient oriented x3 Limitations: No limitations Head: Normal to inspection Ears: Hearing grossly normal bilaterally, some earwax present but open Nose: Normal external nose present Face and sinus: Normal facial exam Eyes: Appearance normal, both eyes and all related structures Neck: Normal visual inspection and Yes full ROM Respiratory: Normal respiratory effort and able to speak in complete sentences. Clear to auscultation bilaterally Cardiovascular: Regular rate and rhythm. Normal S1 and S2 GI: Normal to inspection. Soft to palpation and nontender Skin: No rashes or lesions noted Neuro: Patient oriented x3 Extremities: Normal to inspection Results - Labs: Hemoglobin 13.3 g/dL indicating mild anemia, hemoglobin A1c 5.7%, LDL 87 mg/dL, triglycerides 199 mg/dL - Labs: Liver function tests normal, PSA, B12, folic acid, and thyroid levels within normal limits Plan Patient was informed and verbally consented to the use of an ambient scribe for clinic note documentation during this visit. 1. Hypercholesterolemia The patient is currently on simvastatin 40 mg daily, with an LDL level of 87 mg/dL, which is within the target range. Triglycerides are elevated at 199 mg/dL, but no additional treatment is planned at this time. 2. Hepatic Steatosis Liver function tests are normal, and no specific treatment is required at this time. 3. Gastroesophageal Reflux Disease (Gerd) The patient is managed with omeprazole and reports no current symptoms of heartburn. 4. Hypertension Blood pressure is well-controlled with lisinopril 10 mg daily, and recent readings are within normal limits. 5. Impaired Glucose Tolerance The patient's hemoglobin A1c has improved to 5.7% from a previous level of 5.8%, indicating better glucose control. 6. Mild Anemia The patient is taking an iron supplement as advised, and a follow-up blood count is planned in three months to monitor the anemia. 7. Lumbar Degenerative Disc Disease The patient is prescribed tramadol for pain management as needed. Discussion Notes During the visit, I discussed the patient's current health status and management plans for each condition. We reviewed the importance of maintaining a low-fat diet and regular exercise to manage cholesterol and glucose levels. The patient was advised to continue current medications, including simvastatin, lisinopril, and omeprazole. We also discussed the mild anemia and the need for follow-up blood work in three months. The patient declined further gastrointestinal evaluation despite the anemia. I emphasized the importance of monitoring symptoms and seeking medical attention if conditions worsen. Patient Instructions - Continue taking prescribed medications: simvastatin, lisinopril, omeprazole, and iron supplement. - Follow a low-fat diet and engage in regular exercise. - Increase water intake to six to eight glasses daily. - Schedule follow-up blood work in three months to monitor anemia. - Monitor for any new or worsening symptoms and seek medical attention if necessary. Orders: Orders Ferritin 3 Months D64.9 - Anemia, unspecified IRON PROFILE 3 Months D64.9 - Anemia, unspecified Hemoglobin A1c 3 Months D64.9 - Anemia, unspecified Vitamin B12 and Folate 3 Months D64.9 - Anemia, unspecified Complete Blood Count Auto Diff 3 Months D64.9 - Anemia, unspecified Comprehensive Met. Panel 3 Months D64.9 - Anemia, unspecified Reticulocyte Count 3 Months D64.9 - Anemia, unspecified
[2024-11-26 09:04] VITALS: BP 122/70; PULSE 88; TEMP 36.2; O2SAT 95; BMI 26.9
== END 2024-11-26 09:41 | disposition home or self-care (01) ==
LOC: HO.HMCH 08:20
PROVIDERS: PCP Internal Medicine; Visit Provider Internal Medicine
DX: Z00.00 Encounter for general adult medical examination without abnormal findings (principal); D64.9 Anemia, unspecified; K76.0 Fatty (change of) liver, not elsewhere classified; K21.9 Gastro-esophageal reflux disease without esophagitis; R73.02 Impaired glucose tolerance (oral); I10 Essential (primary) hypertension; E78.00 Pure hypercholesterolemia, unspecified; M51.369 Other intervertebral disc degeneration, lumbar region without mention of lumbar back pain or lower extremity pain; R19.5 Other fecal abnormalities

== ENCOUNTER → 2024-11-26 08:19 | Outpatient (BNVA) | payer MEDICARE, SELFPAY | PROVIDERS: PCP Internal Medicine; Visit Provider Internal Medicine | DX: Z00.00 Encounter for general adult medical examination without abnormal findings (principal); D64.9 Anemia, unspecified; K76.0 Fatty (change of) liver, not elsewhere classified; K21.9 Gastro-esophageal reflux disease without esophagitis; R73.02 Impaired glucose tolerance (oral); I10 Essential (primary) hypertension; E78.00 Pure hypercholesterolemia, unspecified; M51.369 Other intervertebral disc degeneration, lumbar region without mention of lumbar back pain or lower extremity pain; R19.5 Other fecal abnormalities; Z79.899 Other long term (current) drug therapy; Z13.30 Encounter for screening examination for mental health and behavioral disorders, unspecified | CPT/HCPCS: 96127; 99397 ==

== ENCOUNTER 2025-02-25 07:12 | Outpatient (REF) | payer MEDICARE, SELFPAY ==
[2025-02-25 08:00] LABS: Hematocrit 39.1 % (42.0-52.0); Hemoglobin 12.6 g/dl (14.0-18.0); Imm Gran Abs Auto 0.02 X10*3/uL (0.00-0.03); Imm Gran Pct Auto 0.2 % (0.0-0.4); Lymphocytes Absolute Auto 2.2 X10*3/uL (1.2-4.9); MANUAL DIFF FLAG SCAN; Mean Corpuscular HGB Conc 32.2 g/dl (31.0-36.0); Mean Corpuscular Hemoglobin 26.8 pg (27.0-33.0); Mean Corpuscular Volume 83.2 fL (80.0-98.0); NRBC Abs Auto 0.000 X10*3/uL (0.0-0.012); NRBC Pct Auto 0.0 /100WBC (0.0-0.2); PLT CLUMP 1; Red Blood Count 4.70 X10*6/uL (4.60-5.80); Reticulocytes Absolute 0.091 X10*6/uL (0.026-0.095); SCAN SMEAR FLAG 1
[2025-02-25 08:05] LABS: White Blood Count 8.3 X10*3/uL (4.8-10.8)
[2025-02-25 08:40] LABS: Alanine Aminotransferase 21 U/L (0-40); Albumin Level 4.5 g/dL (3.5-5.0); Alkaline Phosphatase 78 U/L (39-117); Anion Gap 10 (12-20); Aspartate Amino Transferase 27 U/L (5-37); Blood Urea Nitrogen 11 mg/dL (9-16); Calcium 9.0 mg/dL (8.4-10.2); Carbon Dioxide 28 mmol/L (22-29); Chloride 105 mmol/L (96-108); Estimated Glomerular Filt Rate > 60; Iron 48 mcg/dL (45-160); Percent Iron Saturation 15 % (15-50); Potassium 4.8 mmol/L (3.3-5.1); Sodium 138 mmol/L (135-145); Total Iron Binding Capacity 318 mcg/dL (228-428); Total Protein 7.1 g/dL (6.5-8.0); Unsaturated Iron Binding 270 ug/dL
[2025-02-25 08:44] LABS: Ferritin 17 ng/mL (20-250)
[2025-02-25 08:58] LABS: Folate 18.5 ng/mL (> or = 4.0); Vitamin B12 296 pg/mL (200-900)
== END 2025-02-25 07:13 ==
LOC: HO.LAB 07:12
PROVIDERS: PCP Internal Medicine; Visit Provider Internal Medicine
DX: Z13.1 Encounter for screening for diabetes mellitus (principal); D64.9 Anemia, unspecified
CPT/HCPCS: 36415; 80053; 82607; 82728; 82746; 83036; 83540; 85025; 85045